=== PATIENT | male | born 1955 | race Caucasian/White ===

== ENCOUNTER 2024-01-14 20:36 | Emergency (ER) | payer MEDICARE, MEDICAID, SELFPAY ==
--- NOTE | ~2024-01-14 | XR_ITS ---
EXAMINATION: XR CHEST CLINICAL INFORMATION: Dyspnea. History of emphysema. COMPARISON: None available. TECHNIQUE: 2 views of the chest were obtained. FINDINGS: The heart is normal in size. There is calcific atherosclerotic disease of the aorta. The lungs are hyperinflated. There is flattening of the diaphragm and increased size of the retrosternal airspace, consistent with chronic obstructive pulmonary disease. There are bibasilar airspace opacities for which infection cannot be excluded. There is no pleural effusion or pneumothorax. No acute osseous abnormality. XR/XR chest 2V IMPRESSION: Bibasilar airspace opacities for which an infectious/inflammatory etiology cannot be excluded. Findings consistent with chronic obstructive pulmonary disease. Electronically signed by: Carlos Contreras DO 01/14/2024 09:56 PM EDT
--- NOTE | 2024-01-14 20:44 | ED.GENADULT ---
HPI - General Adult General Chief complaint: Dyspnea Stated complaint: difficulty breathing Time Seen by Provider: 01/15/24 00:05 Source: patient Limitations: no limitations History of Present Illness ED Provider: Tiara Calderon PA-C HPI narrative: 68-year-old male with a history of COPD on 2 L nasal cannula, emphysema, chronic kidney disease stage 3, hypertension, hyperlipidemia, diabetes and depression presents with 2-3 days of cough and wheezing. Patient states his chest feels tight, and he has been having worsening dyspnea with exertion. Patient has been using his home nebulizer without relief from symptoms. Denies fever, known sick contacts with viral symptoms, no nausea no vomiting or diarrhea. Related Data Previous Rx's ?Medication ?Instructions ?Recorded prednisone 20 mg tablet 40 mg (2 x 20 mg) PO DAILY #8 tabs 01/15/24 Allergies Allergy/AdvReac Type Severity Reaction Status Date / Time codeine Allergy Headache Verified 01/14/24 20:49 Review of Systems Review of Systems: Yes all other systems are reviewed and are negative Constitutional: Constitutional: Denies fatigue and Denies fever(s) Cardiovascular: Cardiovascular: Denies chest pain and Reports dyspnea on exertion Respiratory: Respiratory: Reports cough, Reports dyspnea on exertion and Reports wheezing Gastrointestinal: Gastrointestinal: Denies diarrhea, Denies nausea and Denies vomiting Endocrine: Endocrine: Denies fatigue Allergic/Immunologic: Allergic/Immunologic: Reports wheezing PMFSH Past Medical History Attestation statement: The following information was validated with the patient. Social History Social History Advance Directives: No Advance Directives Information Provided: No Physical Exam ED Vital Signs: Vital Signs - 24 hr 01/14/24 20:46 01/15/24 00:00 Temperature 97.9 F 98.8 F Pulse Rate 102 H 89 Respiratory Rate 18 17 Blood Pressure 109/65 127/63 Pulse Oximetry 98 96 Oxygen Delivery Method Room Air Room Air BMI result Body Mass Index 33.9 Const Other: Alert, well in appearance Orientation/consciousness: patient oriented x3 Resp Other: Somewhat tachypneic, however speaking in full sentences, breath sounds diminished, no active wheezing, active dry cough at times no wheezing Cardio Other: Normal peripheral perfusion Skin Other: Warm dry no rash Neuro General: patient oriented x3, no focal motor deficits and CN's II-XI intact bilaterally Psych Other: Calm cooperative Course Course Course Narrative: This is a rapid medical exam performed by Damian Mendez NP: Additional HPI, ROS, PE not included below will be deferred to primary provider. Patient is a 68-year-old male with history of emphysema, on home O2 @ 2lpm, presenting to the ED with complaint of worsening dyspnea for the past 3 days. Denies pain. Plan: viral serology, labs, CXR Reevaluation(s) Reevaluation #1: Patient much improved after up dress we will get an ambulation trial to make sure he does not desaturate Time: 01:40 Reevaluation #2: Patient ambulated maintained his baseline oxygen saturation we will discharge now Medications Administered Generic Name Dose Route Start Last Admin Trade Name Freq PRN Reason Stop Dose Admin Magnesium Sulfate 2 gm in 50 mls @ 25 mls/hr 01/15/24 00:15 01/15/24 00:52 Magnesium Sulfate/H2o IV 01/15/24 02:14 25 mls/hr ONCE ONE Administration Discontinued Medications Generic Name Dose Route Start Last Admin Trade Name Freq PRN Reason Stop Dose Admin Methylprednisolone Sodium Succinate 125 mg 01/15/24 00:15 01/15/24 00:52 Methylprednisolone Sod Succ 125 Mg/2 Ml Vial IVPUSH 01/15/24 00:16 125 mg ONCE ONE Administration Medical Decision Making Medical Decision Making MDM Narrative: 68-year-old male with a history of COPD on 2 L nasal cannula, emphysema, chronic kidney disease stage 3, hypertension, hyperlipidemia, diabetes and depression presents with 2-3 days of cough and wheezing. Patient states his chest feels tight, and he has been having worsening dyspnea with exertion. Patient has been using his home nebulizer without relief from symptoms. Denies fever, known sick contacts with viral symptoms, no nausea no vomiting or diarrhea. Problem: COPD, chronic kidney disease, hypertension, diabetes History: Per patient I have considered the following differential diagnoses: PE, chronic lung disease exacerbation exacerbation, viral syndrome, bronchitis, pneumonia Plan: Do not think this is PE, the patient does not newly hypoxic, there was no pleuritic chest pain, he is not persistently tachycardic, he has no objective signs symptoms for DVT on exam, I am deferring a dimer. I am treating the patient for a chronic lung disease exacerbation likely secondary to exposure to viral illness, despite our viral panel being negative. There are numerous respiratory viruses circulating in the community. We will be giving duo neb, 2 g of magnesium and Solu-Medrol. The additional screening labs and chest x-ray were obtained from triage. He has no leukocytosis, the cough is not productive, clinically does not have pneumonia nor bronchitis, I am not starting empiric antibiotics as it is not clinically warranted. Given the fact that chronic lung disease exacerbation is part of our sepsis protocol, I have no choice but to obtain blood cultures and a lactic acid. To note, this is not sepsis I have independently reviewed the following tests: Labs: No leukocytosis, not anemic, no electrolyte abnormality, creatinine is 3.13, the patient does not know what his baseline creatinine is, viral panel negative X-ray: Dyspnea. History of emphysema. COMPARISON: None available. TECHNIQUE: 2 views of the chest were obtained. FINDINGS: The heart is normal in size. There is calcific atherosclerotic disease of the aorta. The lungs are hyperinflated. There is flattening of the diaphragm and increased size of the retrosternal airspace, consistent with chronic obstructive pulmonary disease. There are bibasilar airspace opacities for which infection cannot be excluded. There is no pleural effusion or pneumothorax. No acute osseous abnormality. XR/XR chest 2V IMPRESSION: Bibasilar airspace opacities for which an infectious/inflammatory etiology cannot be excluded. Findings consistent with chronic obstructive pulmonary disease. Electronically signed by: Carlos Contreras DO 01/14/2024 09:56 PM EDT RP Lab Data 01/14/24 21:33 01/14/24 21:33 Labs: Lab Results 01/14/24 01/15/24 Range/Units 21:33 00:29 WBC 6.9 (4.8-10.8) X10*3/uL RBC 4.52 L (4.60-5.80) X10*6/uL Hgb 13.5 L (14.0-18.0) g/dl Hct 40.8 L (42.0-52.0) % MCV 90.3 (80.0-98.0) fL MCH 29.9 (27.0-33.0) pg MCHC 33.1 (31.0-36.0) g/dl RDW 14.6 (11.0-16.0) % Plt Count 162 (160-400) X10*3/uL MPV 9.6 (9.4-12.4) fL Immature Gran % (Auto) 1.3 H (0.0-0.4) % Neut % (Auto) 71.4 (45-73) % Lymph % (Auto) 12.9 L (20-40) % [place] % (Auto) 11.5 H (2-11) % Eos % (Auto) 2.2 (0-4) % Baso % (Auto) 0.7 (0-2) % Lymph # (Auto) 0.9 L (1.2-4.9) X10*3/uL [place] # (Auto) 0.8 (0.1-1.2) X10*3/uL Eos # (Auto) 0.2 (0.0-0.4) X10*3/uL Baso # (Auto) 0.1 (0.0-0.2) X10*3/uL Abs Immat Gran (auto) 0.09 H (0.00-0.03) X10*3/uL Absolute Neuts (auto) 4.9 (2.0-8.3) x10*3/uL Absolute Nucleated RBC 0.000 (0.0-0.012) X10*3/uL Nucleated RBC % (auto) 0.0 (0.0-0.2) /100WBC PT 9.8 L (10.9-12.4) SEC INR 0.8 L (0.9-1.1) Sodium 146 H (135-145) mmol/L Potassium 4.8 (3.3-5.1) mmol/L Chloride 109 H (96-108) mmol/L Carbon Dioxide 26 (22-29) mmol/L Anion Gap 16 (12-20) BUN 49 H (9-16) mg/dL Creatinine 3.13 H (0.5-1.4) mg/dL Estim Creat Clear Calc 28.4 Estimated GFR 20 Random Glucose 98 (60-115) mg/dL Lactic Acid 0.9 (0.5-2.0) mmol/L Calcium 10.2 (8.4-10.2) mg/dL Total Bilirubin 0.1 (0.0-1.0) mg/dL AST 14 (5-37) U/L ALT 17 (0-40) U/L Alkaline Phosphatase 102 (39-117) U/L Troponin I High Sens 4.8 (<3.5-35.0) ng/L B-Natriuretic Peptide 14 (<100) pg/mL Total Protein 7.1 (6.5-8.0) g/dL Albumin 4.1 (3.5-5.0) g/dL Influenza Type A (PCR) NEGATIVE (Negative) Influenza Type B (PCR) NEGATIVE (Negative) RSV RNA Qual (PCR) NEGATIVE (Negative) SARS-CoV-2 RNA (RT-PCR) NEGATIVE (Negative) Discharge Plan Discharge Clinical Impression: Acute viral syndrome, COPD exacerbation Patient Disposition: Home, Self-Care Instructions: COPD (Chronic Obstructive Pulmonary Disease) (ED), Viral Syndrome (ED) Additional Instructions: You are being treated for an acute exacerbation of your COPD. See home care instructions. Use your nebulized treatments as directed, take the steroid taper as directed, you do not need to take any additional steroid until tomorrow morning. Tonight, all of your screening labs were normal, you were screened for RSV influenza and COVID, the panel was negative. You do not have a pneumonia on your chest x-ray. You need to follow up with your primary care provider for a recheck Prescriptions: New prednisone 20 mg tablet 40 mg PO DAILY Qty: 8 0RF Print Language: Bulgarian
[2024-01-14 20:46] VITALS: BP 109/65; PULSE 102; RESP 18; TEMP 36.6; O2SAT 98; BMI 33.9
--- NOTE | 2024-01-14 20:47 | ECG_ITS ---
Test Reason : dyspnea Blood Pressure : / mmHG Vent. Rate : 105 BPM Atrial Rate : 105 BPM P-R Int : 196 ms QRS Dur : 074 ms QT Int : 340 ms P-R-T Axes : 070 031 044 degrees QTc Int : 449 ms Sinus tachycardia Nonspecific ST abnormality Abnormal ECG When compared with ECG of 05-APR-2004 22:13, Criteria for Septal infarct are no longer Present ST now depressed in Lateral leads Referred By: Yolis Mendez Electronically Signed By:TERESA PARIS MD
[2024-01-14 21:40] LABS: MANUAL DIFF FLAG NO
[2024-01-14 21:41] LABS: Basophils Absolute Auto 0.1 X10*3/uL (0.0-0.2); Basophils Percent Auto 0.7 % (0-2); Eosinophils Absolute Auto 0.2 X10*3/uL (0.0-0.4); Eosinophils Percent Auto 2.2 % (0-4); Hematocrit 40.8 % (42.0-52.0); Hemoglobin 13.5 g/dl (14.0-18.0); Imm Gran Abs Auto 0.09 X10*3/uL (0.00-0.03); Imm Gran Pct Auto 1.3 % (0.0-0.4); Lymphocytes Absolute Auto 0.9 X10*3/uL (1.2-4.9); Lymphocytes Percent Auto 12.9 % (20-40); Mean Corpuscular HGB Conc 33.1 g/dl (31.0-36.0); Mean Corpuscular Hemoglobin 29.9 pg (27.0-33.0); Mean Corpuscular Volume 90.3 fL (80.0-98.0); Mean Platelet Volume 9.6 fL (9.4-12.4); Monocytes Absolute Auto 0.8 X10*3/uL (0.1-1.2); Monocytes Percent Auto 11.5 % (2-11); Neutrophils Absolute Auto 4.9 x10*3/uL (2.0-8.3); Neutrophils Percent Auto 71.4 % (45-73); Platelet Count 162 X10*3/uL (160-400); Red Blood Count 4.52 X10*6/uL (4.60-5.80); Red Cell Distribution Width 14.6 % (11.0-16.0); White Blood Count 6.9 X10*3/uL (4.8-10.8)
[2024-01-14 21:53] LABS: INTERNATIONAL NORM RATIO 0.8 (0.9-1.1); Prothrombin Time 9.8 SEC (10.9-12.4)
[2024-01-14 21:58] LABS: Alanine Aminotransferase 17 U/L (0-40); Albumin Level 4.1 g/dL (3.5-5.0); Alkaline Phosphatase 102 U/L (39-117); Anion Gap 16 (12-20); Aspartate Amino Transferase 14 U/L (5-37); Bilirubin Total 0.1 mg/dL (0.0-1.0); Blood Urea Nitrogen 49 mg/dL (9-16); Calcium 10.2 mg/dL (8.4-10.2); Carbon Dioxide 26 mmol/L (22-29); Chloride 109 mmol/L (96-108); Creatinine Clr Calc Pharmacy 28.4; Estimated Glomerular Filt Rate 20; Glucose Random 98 mg/dL (60-115); Potassium 4.8 mmol/L (3.3-5.1); Sodium 146 mmol/L (135-145); Total Protein 7.1 g/dL (6.5-8.0)
[2024-01-14 22:04] LABS: B Type Natriuretic Peptide 14 pg/mL (<100)
[2024-01-14 22:05] LABS: Troponin-I High Sensitivity 4.8 ng/L (<3.5-35.0)
[2024-01-14 22:17] LABS: Influenza A PCR NEGATIVE (Negative); Influenza B PCR NEGATIVE (Negative); Resp Syncy Virus RNA Qual PCR NEGATIVE (Negative); SARS COV2 PCR INHOUSE NEGATIVE (Negative)
[2024-01-15] VITALS: BP 127/63; PULSE 89; RESP 17; TEMP 37.1; O2SAT 96
[2024-01-15 00:48] LABS: Lactic Acid 0.9 mmol/L (0.5-2.0)
[2024-01-15] MEDS: Magnesium Sulfate/H2O 2 GM/50 ML PIGGYBACK IV (00:52)
[2024-01-15] MEDS: methylPREDNISolone Sod Succ 125 MG/2 ML VIAL IVPUSH (00:52)
[2024-01-15 01:57] VITALS: BP 125/43; PULSE 84; RESP 20; TEMP 36.8; O2SAT 97
== END 2024-01-15 01:59 | disposition home or self-care (01) ==
PROVIDERS: Physician Assistant Medical; Registered Nurse Emergency; Emergency Provider Emergency Medicine
DX: J44.1 Chronic obstructive pulmonary disease with (acute) exacerbation (principal); B34.9 Viral infection, unspecified; R06.00 Dyspnea, unspecified; R00.0 Tachycardia, unspecified; Z99.81 Dependence on supplemental oxygen; Z03.818 Encounter for observation for suspected exposure to other biological agents ruled out; Z79.899 Other long term (current) drug therapy; Z51.81 Encounter for therapeutic drug level monitoring
CPT/HCPCS: 0241U; 36415; 71046; 80053; 83605; 83880; 84484; 85025; 85610; 87040; 93005; 96374; 96375; 99284; 99285; J2919; J3475

== ENCOUNTER → 2024-01-14 20:47 | Outpatient (BNV) | payer MEDICARE, MEDICAID, SELFPAY | PROVIDERS: Emergency Provider Emergency Medicine; Visit Provider Internal Medicine Cardiovascular Disease | DX: R94.31 Abnormal electrocardiogram [ECG] [EKG] (principal) | CPT/HCPCS: 93010 ==

== ENCOUNTER 2024-01-23 14:02 | Observation (INO) | payer MEDICARE, MEDICAID, SELFPAY ==
--- NOTE | ~2024-01-23 | XR_ITS ---
EXAMINATION: XR CHEST CLINICAL INFORMATION: Shortness of breath COMPARISON: Chest radiograph January 14, 2024 TECHNIQUE: 2 views of the chest were obtained. FINDINGS: Hyperinflated lung mendez consistent with emphysema. Persistent bibasilar opacities. No pleural effusion. The heart and mediastinal borders are unchanged. No pneumothorax. No acute osseous abnormality. XR/XR chest 2V IMPRESSION: Persistent bibasilar opacities concerning for infection. Electronically signed by: Neri Ring MD 01/23/2024 03:15 PM EDT
[2024-01-23 14:05] VITALS: BP 148/61; PULSE 109; RESP 26; TEMP 37; O2SAT 96; BMI 33.9
--- NOTE | 2024-01-23 14:05 | ED_ITS ---
HPI - SOB/Dyspnea General Chief Complaint: Dyspnea Stated Complaint: diff breathing Time Seen by Provider: 01/23/24 15:21 Source: patient, family, RN notes reviewed and old records reviewed Mode of arrival: ambulatory History of Present Illness ED Provider: Telma Greenberg PA-C HPI Narrative: 68-year-old male with a past medical history of COPD on 2 L NC with exertion, emphysema, CKD stage 3, HTN, HLD, DM, depression, presenting to the ED complaining of increasing SOB, chest tightness, and dry cough times 3-4 days. Patient was seen and treated in our ED on 01/13 for similar symptoms, wiping finish course of prednisone without relief. Denies fever, chills, pedal edema, calf tenderness, abdominal pain, nausea/vomiting. Related Data Home Medications ?Medication ?Instructions ?Recorded ?Confirmed albuterol sulfate 90 mcg/actuation 2 puff inhalation Q6H PRN 01/23/24 01/23/24 aerosol inhaler (Ventolin HFA) Shortness Of Breath Or Wheezing amlodipine 5 mg tablet 5 mg PO DAILY 01/23/24 01/23/24 aripiprazole 5 mg tablet 5 mg PO DAILY 01/23/24 01/23/24 aspirin 81 mg tablet,delayed 81 mg PO DAILY 01/23/24 01/23/24 release budesonide-formoterol HFA 160 2 puff inhalation BID 01/23/24 01/23/24 mcg-4.5 mcg/actuation aerosol inhaler (Symbicort) empagliflozin 10 mg tablet 10 mg PO DAILY 01/23/24 01/23/24 (Jardiance) fenofibrate nanocrystallized 145 145 mg PO DAILY 01/23/24 01/23/24 mg tablet lorazepam 0.5 mg tablet 0.5 mg PO Q8H PRN Anxiety 01/23/24 01/23/24 losartan 50 mg tablet 50 mg PO DAILY 01/23/24 01/23/24 omeprazole 20 mg capsule,delayed 20 mg PO DAILY@0630 01/23/24 01/23/24 release polyethylene glycol 3350 17 17 g PO DAILY 01/23/24 01/23/24 gram/dose oral powder rosuvastatin 40 mg tablet 40 mg PO DAILY 01/23/24 01/23/24 tiotropium bromide 18 mcg capsule 1 cap inhalation DAILY 01/23/24 01/23/24 with inhalation device (Spiriva with HandiHaler) venlafaxine 75 mg capsule,extended 225 mg PO DAILY 01/23/24 01/23/24 release 24 hr Allergies Allergy/AdvReac Type Severity Reaction Status Date / Time codeine Allergy Headache Verified 01/23/24 14:11 Review of Systems 2 Review of Systems: Yes all other systems are reviewed and are negative Constitutional: Constitutional: Reports as per [facility] Past Medical History Attestation statement: The following information was validated with the patient. Source: old records reviewed Medical History Hypertension Peripheral vascular disease Diabetes Common variable immunodeficiency COPD (chronic obstructive pulmonary disease) Social History Social History (Updated 01/23/24 @ 17:05 by CHEVY Almazan) Household Members: Spouse Housing: Apartment Do you presently have visiting nurse or other home services: No Alcohol intake: current Alcohol intake frequency: holidays/special occasions only Patient Tobacco Use Status: Former Tobacco user Smoked in Last 30 Days: No Use of substances other than those prescribed or required for medical reasons: No Advance Directives: No Advance Directives Information Provided: No Do you have a plan to hurt others: No Plan Recently lost weight without trying: No Eating poorly because of decreased appetite: No Nutrition Risks: No Nutritional Risk Poor oral hygiene: No Physical Exam 2 Vital Signs: Vital Signs: Last Vital Signs Temp 97.6 F 01/23/24 19:42 Pulse 106 H 01/23/24 19:57 Resp 18 01/23/24 19:57 BP 145/56 H 01/23/24 19:42 Pulse Ox 95 01/23/24 19:42 O2 Del Method Room Air 01/23/24 15:44 Oxygen Flow Rate 2 01/23/24 14:05 BMI result Body Mass Index 33.9 Const: General: cooperative, healthy appearing and no acute distress O rientation/consciousness: patient oriented x3 Limitations: no limitations HEENT: Head: Yes normal to inspection and Yes atraumatic Ears: hearing grossly normal bilaterally General nose exam: Normal external nose present Face and sinus: Yes normal facial exam Eyes: General: appearance normal, both eyes and all related structures EOM: EOMs intact bilaterally Neck: Neck: Yes normal visual inspection and Yes no meningeal signs Resp: Effort & Inspection: normal respiratory effort and no respiratory distress Auscultation: diminished lung sounds diffuse Cardio: Rate: regular rate Heart sounds: S1 normal heart sound present and S2 normal heart sound present GI: Inspection: Yes normal to inspection Palpation (GI): Soft to palpation, nontender, no guarding and not rigid Skin: Rashes: no rashes Wounds: no wounds Neuro: General: patient oriented x3, tone normal and no meningeal signs C ranial nerves: Yes CN's II-XII intact bilaterally Gait exam (Neuro): Normal gait present Extrem: General: Yes normal to inspection, Yes no pedal edema and Yes no calf tenderness Course Course Course Narrative: This is a Rapid Medical Exam performed in triage by Telma Greenberg PA-C. Full HPI, ROS and PE to be performed by primary ED provider. 68 yo M w.PMHx COPD on 2 L nasal cannula w/exertion only, emphysema, chronic kidney disease stage 3, hypertension, hyperlipidemia, diabetes and depression presenting to the ED c/o SOB x 4-5 days with chest tightness & +dry cough. Was seen on 01/13 here for similar sx however sx returned once finished Prednisone. Has been compliant with home medications. PE: diminished lung sounds throughout, No pedal edema Plan: EKG, labs, CXR, viral studies -1557--no leukocytosis. H&H at patient's baseline. Chronically elevated BUN/creatinine. Initial troponin 5.2 will obtain repeat -viral studies negative XR chest 2V IMPRESSION: Persistent bibasilar opacities concerning for infection. > patient given Rocephin/azithromycin and IV Solu-Medrol. Plan is for admission Medications Administered Generic Name Dose Route Start Last Admin Trade Name Freq PRN Reason Stop Dose Admin Albuterol/Ipratropium 3 ml 01/23/24 20:00 01/23/24 19:53 Albuterol/Iprat 2.5/0.5mg 3 Ml Ampul.Neb INHALE 3 ml RQ6H WHILE AWAKE PHYLLIS Administration Heparin Sodium (Porcine) 5,000 unit 01/23/24 17:00 01/23/24 17:45 Heparin Sodium,Porcine 5,000 Unit/Ml Vial SUBCUT 5,000 unit Q12H PHYLLIS Administration Discontinued Medications Generic Name Dose Route Start Last Admin Trade Name Freq PRN Reason Stop Dose Admin Ceftriaxone Sodium 1 gm 01/23/24 15:21 01/23/24 15:37 Ceftriaxone Sodium 1 Gm Vial IVPUSH 01/23/24 15:22 1 gm ONCE ONE Administration Albuterol Sulfate 5 mg/ 0 mg 01/23/24 14:40 01/23/24 14:43 Albuterol/Ipratropium 3 ml INHALE 01/23/24 14:41 1 each ONCE ONE Administration Azithromycin 500 mg/ Sodium 250 mls @ 125 mls/hr 01/23/24 15:21 01/23/24 17:47 Chloride IV 01/23/24 17:20 Infused ONCE ONE Infusion Methylprednisolone Sodium Succinate 60 mg 01/23/24 15:27 01/23/24 15:35 Methylprednisolone Sod Succ 125 Mg/2 Ml Vial IVPUSH 01/23/24 15:28 60 mg ONCE ONE Administration Medical Decision Making Medical Decision Making [facility] Narrative: 68-year-old male with a past medical history of COPD on 2 L NC with exertion, emphysema, CKD stage 3, HTN, HLD, DM, depression, presenting to the ED complaining of increasing SOB, chest tightness, and dry cough x 3-4 days. On exam initially tachycardic, tachypneic, satting 96% on baseline O2, diminished lung sounds throughout, no pedal edema. Concern for COPD exacerbation vs pneumonia. Rule out CHF and ACS. Lower suspicion for DVT/PE. low suspicion for severe sepsis at this time Plan: EKG, labs, CXR, viral studies, ED bronch protocol, re-evaluate Please refer to course for remaining clinical decision making, interpretation of labs/imaging results, and discussions with consultants and/or family members. Differential Diagnosis Differential Diagnoses: The differential diagnosis associated with the presentation includes As above Admission/Observation Consideration of admission/observation: Escalation of care including admission/observation considered Lab Data [facility] Lab Attestation statement: I reviewed the patient's lab results. 01/23/24 14:28 01/23/24 14:28 Labs: Lab Results 01/23/24 Range/Units 14:28 WBC 9.2 (4.8-10.8) X10*3/uL RBC 4.62 (4.60-5.80) X10*6/uL Hgb 13.6 L (14.0-18.0) g/dl Hct 41.6 L (42.0-52.0) % MCV 90.0 (80.0-98.0) fL MCH 29.4 (27.0-33.0) pg MCHC 32.7 (31.0-36.0) g/dl RDW 15.0 (11.0-16.0) % Plt Count 179 (160-400) X10*3/uL MPV 9.8 (9.4-12.4) fL Immature Gran % (Auto) 1.1 H (0.0-0.4) % Neut % (Auto) 82.7 H (45-73) % Lymph % (Auto) 7.1 L (20-40) % [place] % (Auto) 7.6 (2-11) % Eos % (Auto) 1.2 (0-4) % Baso % (Auto) 0.3 (0-2) % Lymph # (Auto) 0.7 L (1.2-4.9) X10*3/uL [place] # (Auto) 0.7 (0.1-1.2) X10*3/uL Eos # (Auto) 0.1 (0.0-0.4) X10*3/uL Baso # (Auto) 0.0 (0.0-0.2) X10*3/uL Abs Immat Gran (auto) 0.10 H (0.00-0.03) X10*3/uL Absolute Neuts (auto) 7.6 (2.0-8.3) x10*3/uL Absolute Nucleated RBC 0.000 (0.0-0.012) X10*3/uL Nucleated RBC % (auto) 0.0 (0.0-0.2) /100WBC PT 9.9 L (10.9-12.4) SEC INR 0.9 (0.9-1.1) Sodium 142 (135-145) mmol/L Potassium 4.8 (3.3-5.1) mmol/L Chloride 108 (96-108) mmol/L Carbon Dioxide 25 (22-29) mmol/L Anion Gap 14 (12-20) BUN 54 H (9-16) mg/dL Creatinine 2.52 H (0.5-1.4) mg/dL Estim Creat Clear Calc 35.3 Estimated GFR 26 Random Glucose 117 H (60-115) mg/dL Lactic Acid 0.9 (0.5-2.0) mmol/L Calcium 9.6 (8.4-10.2) mg/dL Total Bilirubin 0.2 (0.0-1.0) mg/dL Direct Bilirubin < 0.2 (0.0-0.5) mg/dL AST 13 (5-37) U/L ALT 15 (0-40) U/L Alkaline Phosphatase 99 (39-117) U/L Troponin I High Sens 5.2 (<3.5-35.0) ng/L B-Natriuretic Peptide 12 (<100) pg/mL Total Protein 6.8 (6.5-8.0) g/dL Albumin 4.0 (3.5-5.0) g/dL Procalcitonin 0.24 ng/mL Influenza Type A (PCR) NEGATIVE (Negative) Influenza Type B (PCR) NEGATIVE (Negative) RSV RNA Qual (PCR) NEGATIVE (Negative) SARS-CoV-2 RNA (RT-PCR) NEGATIVE (Negative) Independent Interpretation I performed an independent interpretation of an: EKG (My interpretation EKG sinus tachycardia rate of 105. QTC 412. No significant change when compared to prior. No STEMI) Radiology Impression Discussion of test interpretation with radiology: I have reviewed the radiologist's reading. Independent Historian Clinical information obtained from an independent historian. History obtained from or confirmed by: Spouse External Record Review External record reviewed: Inpatient record, Office record, Outpatient record, Prior outpatient labs, Prior outpatient radiology, Primary care record and Outside ED record Tests considered The following testing was considered but not selected: As above Prescription Management I considered prescription management with: Other Chronic Conditions Patient?s care impacted by: Other (COPD) Critical Care Time Critical Care Time Critical Care Time: Yes Total Critical Care Time: 40 Attestation: I have personally provided critical care time exclusive of time spent on separately billable procedures. Time includes review of lab data, radiology results, discussion with consultants, and monitoring for potential decompensation. Intervention performed as documented. Discharge Plan Discharge Clinical Impression: Pneumonia, COPD exacerbation Patient Disposition: Admitted As Inpatient Interventions: Admission Worksheet (ED) Last Done: 01/23/24 17:35 Discharge Date/Time: 01/23/24 18:35
--- NOTE | 2024-01-23 14:07 | ECG_ITS ---
Test Reason : CP Blood Pressure : / mmHG Vent. Rate : 105 BPM Atrial Rate : 105 BPM P-R Int : 190 ms QRS Dur : 078 ms QT Int : 312 ms P-R-T Axes : 069 046 049 degrees QTc Int : 412 ms Sinus tachycardia Possible Anterior infarct , age undetermined ; could be related to body habitus and lead placement Abnormal ECG When compared with ECG of 14-JAN-2024 21:19, No significant change was found Referred By: Telma Greenberg Electronically Signed By:MIKI WAGGONER
[2024-01-23 14:36] LABS: MANUAL DIFF FLAG NO
[2024-01-23 14:37] LABS: Basophils Percent Auto 0.3 % (0-2); Eosinophils Absolute Auto 0.1 X10*3/uL (0.0-0.4); Eosinophils Percent Auto 1.2 % (0-4); Hematocrit 41.6 % (42.0-52.0); Hemoglobin 13.6 g/dl (14.0-18.0); Imm Gran Pct Auto 1.1 % (0.0-0.4); Lymphocytes Absolute Auto 0.7 X10*3/uL (1.2-4.9); Lymphocytes Percent Auto 7.1 % (20-40); Mean Corpuscular HGB Conc 32.7 g/dl (31.0-36.0); Mean Corpuscular Hemoglobin 29.4 pg (27.0-33.0); Mean Platelet Volume 9.8 fL (9.4-12.4); Monocytes Absolute Auto 0.7 X10*3/uL (0.1-1.2); Monocytes Percent Auto 7.6 % (2-11); Neutrophils Absolute Auto 7.6 x10*3/uL (2.0-8.3); Neutrophils Percent Auto 82.7 % (45-73); Platelet Count 179 X10*3/uL (160-400); Red Blood Count 4.62 X10*6/uL (4.60-5.80); White Blood Count 9.2 X10*3/uL (4.8-10.8)
[2024-01-23] MEDS: Albuterol Sulfate 5 MG, Albuterol/Iprat 2.5/0.5MG 3 ML 3 ML INHALE (14:43)
[2024-01-23 14:44] LABS: INTERNATIONAL NORM RATIO 0.9 (0.9-1.1); Prothrombin Time 9.9 SEC (10.9-12.4)
[2024-01-23 14:46] VITALS: PULSE 101; RESP 22; O2SAT 96
[2024-01-23 14:49] LABS: Lactic Acid 0.9 mmol/L (0.5-2.0)
[2024-01-23 14:52] LABS: Alanine Aminotransferase 15 U/L (0-40); Alkaline Phosphatase 99 U/L (39-117); Anion Gap 14 (12-20); Aspartate Amino Transferase 13 U/L (5-37); Bilirubin Direct < 0.2 mg/dL (0.0-0.5); Bilirubin Total 0.2 mg/dL (0.0-1.0); Blood Urea Nitrogen 54 mg/dL (9-16); Calcium 9.6 mg/dL (8.4-10.2); Carbon Dioxide 25 mmol/L (22-29); Chloride 108 mmol/L (96-108); Creatinine Clr Calc Pharmacy 35.3; Estimated Glomerular Filt Rate 26; Glucose Random 117 mg/dL (60-115); Potassium 4.8 mmol/L (3.3-5.1); Sodium 142 mmol/L (135-145); Total Protein 6.8 g/dL (6.5-8.0)
[2024-01-23 14:58] LABS: B Type Natriuretic Peptide 12 pg/mL (<100)
[2024-01-23 15:00] LABS: Troponin-I High Sensitivity 5.2 ng/L (<3.5-35.0)
[2024-01-23 15:15] LABS: Influenza A PCR NEGATIVE (Negative); Influenza B PCR NEGATIVE (Negative); Resp Syncy Virus RNA Qual PCR NEGATIVE (Negative); SARS COV2 PCR INHOUSE NEGATIVE (Negative)
[2024-01-23] MEDS: methylPREDNISolone Sod Succ 125 MG/2 ML VIAL 60 MG IVPUSH (15:35)
[2024-01-23] MEDS: cefTRIAXone sodium 1 GM VIAL IVPUSH (15:37)
[2024-01-23 15:44] VITALS: BP 117/62; PULSE 108; RESP 16
[2024-01-23] MEDS: Azithromycin 500 MG in 0.9 % Sodium Chloride 250 ML 125 MG IV (15:47)
--- NOTE | 2024-01-23 17:01 | PM.IMHP ---
History of Present Illness Date of Service: 01/23/24 Attending physician on admission: Michael Kothari Chief Complaint: shortness of breath This is a 68-year-old male with a history of COPD on 2 L of supplemental oxygen with ambulation who presents to the emergency department with shortness of breath. He was seen in the emergency department on January 13 with shortness of breath and dry cough. At that time his workup was unremarkable and he was discharged home with a course of steroids. Shortly after he completed steroids he began having recurrent symptoms of shortness of breath and dry cough. He reports associated generalized malaise and denies associated fever or chills. He denies any recent sick contacts. He has not been hospitalized in the past several months. And has never been hospitalized for COPD exacerbation. In the emergency department he was afebrile with no leukocytosis. He was initially tachycardic and tachypneic on arrival. Chest x-ray showed concern over possible bibasilar infection. He received IV steroids, antibiotics, breathing treatments and breathing treatments able to due to persistent dyspnea and recurrent symptoms the decision was made to admit him to the hospital for further management. Review of Systems Review of Systems: Yes all other systems are reviewed and are negative Constitutional: Constitutional: Denies chills and Denies fever(s) ENT: Denies dizziness Cardiovascular: Cardiovascular: Denies chest pain and Reports dyspnea on exertion Respiratory: Respiratory: Reports cough and Reports dyspnea on exertion Neurologic: Denies dizziness [facility] Medical History (Updated 01/23/24 @ 17:05 by CHEVY Almazan) Hypertension Peripheral vascular disease Diabetes Common variable immunodeficiency COPD (chronic obstructive pulmonary disease) Functional capacity: independent ambulation Social History (Updated 01/23/24 @ 17:05 by CHEVY Almazan) Alcohol intake: current Alcohol intake frequency: holidays/special occasions only Patient Tobacco Use Status: Former Tobacco user Meds Allergies Allergy/AdvReac Type Severity Reaction Status Date / Time codeine Allergy Headache Verified 01/23/24 14:11 Active Medications: Current Medications Acetaminophen (Acetaminophen 325 Mg Tablet) 650 mg PO Q6H PRN PRN Reason: Pain, Mild (Pain Scale 1-3), fever or headache Heparin Sodium (Porcine) (Heparin Sodium,Porcine 5,000 Unit/Ml Vial) 5,000 unit SUBCUT Q12H PHYLLIS Azithromycin 500 mg/ Sodium (Chloride) 250 mls @ 125 mls/hr IV ONCE ONE Stop: 01/23/24 17:20 Last Admin: 01/23/24 15:47 Dose: 125 mls/hr Magnesium Hydroxide (Milk Of Magnesia 30 Ml Oral.Susp) 30 ml PO DAILY PRN PRN Reason: Constipation Melatonin (Melatonin 3 Mg Tablet) 6 mg PO BEDTIME PRN PRN Reason: Insomnia Methylprednisolone Sodium Succinate (Methylprednisolone Sod Succ 40 Mg/Ml Vial) 40 mg IVPUSH Q12H PHYLLIS Sodium Chloride (0.9 % Sodium Chloride Flush 3 Ml Syringe) 3 ml IVFLUSH QSHIFT PHYLLIS Home Medications ?Medication ?Instructions ?Recorded ?Confirmed ?Last Taken ?Type albuterol sulfate 90 mcg/actuation 2 puff inhalation Q6H PRN 01/23/24 Unknown History aerosol inhaler (Ventolin HFA) Shortness Of Breath Or Wheezing amlodipine 5 mg tablet 5 mg PO DAILY 01/23/24 Unknown History aripiprazole 5 mg tablet 5 mg PO DAILY 01/23/24 Unknown History budesonide-formoterol HFA 160 2 puff inhalation BID 01/23/24 Unknown History mcg-4.5 mcg/actuation aerosol inhaler (Symbicort) empagliflozin 10 mg tablet 10 mg PO DAILY 01/23/24 Unknown History (Jardiance) fenofibrate nanocrystallized 145 145 mg PO DAILY 01/23/24 Unknown History mg tablet lorazepam 0.5 mg tablet 0.5 mg PO Q8H PRN Anxiety 01/23/24 Unknown History omeprazole 20 mg capsule,delayed 20 mg PO DAILY 01/23/24 Unknown History release polyethylene glycol 3350 17 17 g PO DAILY 01/23/24 Unknown History gram/dose oral powder rosuvastatin 40 mg tablet 40 mg PO DAILY 01/23/24 Unknown History tiotropium bromide 18 mcg capsule 1 cap inhalation DAILY 01/23/24 Unknown History with inhalation device (Spiriva with HandiHaler) venlafaxine 75 mg capsule,extended 225 mg PO DAILY 01/23/24 Unknown History release 24 hr Physical Exam Vital Signs and Narrative: Vital Signs: Last Vital Signs Temp 98.6 F 01/23/24 14:05 Pulse 108 H 01/23/24 15:44 Resp 16 01/23/24 15:44 BP 117/62 01/23/24 15:44 Pulse Ox 96 01/23/24 14:05 O2 Del Method Room Air 01/23/24 15:44 Oxygen Flow Rate 2 01/23/24 14:05 BMI result Body Mass Index 33.9 Const: General: cooperative, comfortable, alert and awake Nutritional Appearance: overweight Orientation/consciousness: patient oriented x3 Resp: Other: diminished breath sounds; scattered wheeze Effort & Inspection: normal respiratory effort, able to speak in complete sentences and no use of accessory muscles Cardio: Rate: regular rate GI: Inspection: No distended Palpation (GI): Soft to palpation and nontender Neuro: General: patient oriented x3, moves all extremities and CN's II-XI intact bilaterally Results Labs 01/23/24 14:28 01/23/24 14:28 Labs: Laboratory Results - last 24 hr 01/23/24 14:28 MCV 90.0 MCH 29.4 MCHC 32.7 RDW 15.0 Plt Count 179 MPV 9.8 Immature Gran % (Auto) 1.1 H Neut % (Auto) 82.7 H Lymph % (Auto) 7.1 L [place] % (Auto) 7.6 Eos % (Auto) 1.2 Baso % (Auto) 0.3 Lymph # (Auto) 0.7 L [place] # (Auto) 0.7 Eos # (Auto) 0.1 Baso # (Auto) 0.0 Abs Immat Gran (auto) 0.10 H Absolute Neuts (auto) 7.6 Absolute Nucleated RBC 0.000 Nucleated RBC % (auto) 0.0 PT 9.9 L INR 0.9 Anion Gap 14 Estim Creat Clear Calc 35.3 Estimated GFR 26 Random Glucose 117 H Lactic Acid 0.9 Calcium 9.6 Total Bilirubin 0.2 Direct Bilirubin < 0.2 AST 13 ALT 15 Alkaline Phosphatase 99 Troponin I High Sens 5.2 B-Natriuretic Peptide 12 Total Protein 6.8 Albumin 4.0 Influenza Type A (PCR) NEGATIVE Influenza Type B (PCR) NEGATIVE RSV RNA Qual (PCR) NEGATIVE SARS-CoV-2 RNA (RT-PCR) NEGATIVE Imaging Radiologist's Impressions: Impressions Chest X-Ray 01/23/24 14:07 IMPRESSION: Persistent bibasilar opacities concerning for infection. Electronically signed by: Neri Ring MD 01/23/2024 03:15 PM EDT Assessment and Plan (1) COPD exacerbation: Status: Acute Plan This is a 68-year-old male with history of CKD stage IV, COPD/chronic respiratory failure on 2 L of supplemental oxygen with ambulation, hypertension, common variable immunodeficiency, PVD with LLE stent who presents to the emergency department with persistent shortness of breath Acute exacerbation of COPD and possible pneumonia No white count, no fever, dry cough-likely viral. No evidence of sepsis COVID, flu, RSV negative-will check full RPP Check procalcitonin will treat with Scheduled and p.r.n. breathing treatments, systemic steroids Symptomatic support for cough Blood cultures pending Diabetes SSI, POCs, ADA diet CKD stage 4 at baseline per [facility] records HTN resume home meds when med rec complete HLD/PVD resume home meds when med rec complete ELDER BiPAP q.h.s. Morbid obesity BMI 33.9 common variable immunodeficiency gets Gammagard infusions q28 days, last 01/04 DVT ppx - heparin code status - full code HCP Flavia Guajardo Stroke Does the patient have a stroke diagnosis?: No VTE Prior VTE?: No VTE Risk Level:: Medical - moderate - high VTE Device Contraindication: N/A - Device Ordered VTE Drug Contraindication: N/A - Med Ordered
[2024-01-23 17:02] LABS: Procalcitonin 0.24 ng/mL
[2024-01-23] MEDS: Heparin Sodium,Porcine 5,000 UNIT/ML VIAL 5000 UNIT SUBCUT (17:45)
--- NOTE | 2024-01-23 18:15 | PHA.MEDREC ---
Addendum entered by Jennifer Valderrama RPh 01/23/24 18:18: MED REC REVIEWED BY PATTY Original Note: Pharmacy Consult ? Medication Reconciliation Pharmacy has completed the medication reconciliation. Patient states they take losartan 50 mg daily instead of BID.
[2024-01-23 18:17] VITALS: BMI 33.6
[2024-01-23 19:42] VITALS: BP 145/56; PULSE 106; RESP 18; TEMP 36.4; O2SAT 95
[2024-01-23] MEDS: Albuterol/Iprat 2.5/0.5MG 3 ML AMPUL.NEB INHALE (19:53)
[2024-01-23 19:57] VITALS: PULSE 106; RESP 18; O2SAT 95
[2024-01-23 20:52] LABS: Glucose, Whole Blood 239 mg/dL (60-115)
[2024-01-23] MEDS: Insulin Lispro 100 UNIT/ML 3 ML VIAL SUBCUT (21:12)
[2024-01-23] MEDS: 0.9 % Sodium Chloride Flush 3 ML SYRINGE IVFLUSH (21:12)
[2024-01-23 23:36] VITALS: BP 119/57; PULSE 95; RESP 18; TEMP 36.6; O2SAT 94
[2024-01-24 03:34] VITALS: BP 148/65; PULSE 96; RESP 18; TEMP 36; O2SAT 95
[2024-01-24] MEDS: Omeprazole 20 MG CAPSULE.DR PO (05:42)
[2024-01-24] MEDS: methylPREDNISolone Sod Succ 40 MG/ML VIAL IVPUSH (05:44)
[2024-01-24] MEDS: Doxycycline Hyclate 100 MG in 0.9 % Sodium Chloride 250 ML 166.67 MG IV (05:46)
[2024-01-24 07:06] LABS: Glucose, Whole Blood 134 mg/dL (60-115)
[2024-01-24 07:39] VITALS: BP 147/67; PULSE 89; RESP 20; TEMP 36.4; O2SAT 93
[2024-01-24] MEDS: Fluticasone/Vilanterol 200/25 BLST.W.DEV 1 PUFF INHALE (07:45)
[2024-01-24 07:47] VITALS: PULSE 64; RESP 14; O2SAT 96
[2024-01-24] MEDS: Venlafaxine HCl ER 75 MG CAP.ER.24H 225 MG PO (08:28)
[2024-01-24] MEDS: amLODIPine Besylate 5 MG TABLET PO (08:28)
[2024-01-24] MEDS: ARIPiprazole 5 MG TABLET PO (08:29)
[2024-01-24] MEDS: Aspirin Enteric Coated 81 MG TABLET.DR PO (08:29)
[2024-01-24] MEDS: Fenofibrate 160 MG TABLET PO (08:29)
[2024-01-24] MEDS: Losartan Potassium 50 MG TABLET PO (08:29)
[2024-01-24] MEDS: 0.9 % Sodium Chloride Flush 3 ML SYRINGE IVFLUSH (08:29)
[2024-01-24] MEDS: Atorvastatin Calcium 80 MG TABLET PO (08:29)
--- NOTE | 2024-01-24 09:26 | MHC.CM.PN ---
Jovita 01/24/24, Pt lives with his , he is independent, no home health services. For DME he has: Home O2, Bipap and nebulizer machine, from [facility], [place]. HCP is his , copy requested, to transport home at DC. PCP confirmed: Jair Huber. DCP: home, self care, CM to follow for DC needs.
[2024-01-24 10:10] LABS: Adenovirus PCR Not Detected (Not Detect.); Bordetella parapertussis PCR Not Detected (Not Detect.); Bordetella pertussis PCR Not Detected (Not Detect.); Chlamydia pneumoniae PCR Not Detected (Not Detect.); Coronavirus 229E PCR Not Detected (Not Detect.); Coronavirus HKU1 PCR Not Detected (Not Detect.); Coronavirus NL63 PCR Not Detected (Not Detect.); Coronavirus OC43 PCR Not Detected (Not Detect.); Human metapneumovirus PCR Not Detected (Not Detect.); Influenza A PCR Not Detected (Not Detect.); Influenza B PCR Not Detected (Not Detect.); Mycoplasma pneumoniae PCR Not Detected (Not Detect.); Parainfluenza 1 PCR Not Detected (Not Detect.); Parainfluenza 2 PCR Not Detected (Not Detect.); Parainfluenza 3 PCR Not Detected (Not Detect.); Parainfluenza 4 PCR Not Detected (Not Detect.); RSV PCR Not Detected (Not Detect.); Rhino/Enterovirus PCR Not Detected (Not Detect.)
[2024-01-24 10:11] LABS: SARS-CoV-2 PCR Not Detected (Not Detect.)
[2024-01-24 11:02] LABS: Glucose, Whole Blood 153 mg/dL (60-115)
--- NOTE | 2024-01-24 11:02 | PM.DS ---
DS: Providers Provider Date of Service: 01/24/24 Date of admission: 01/23/24 16:52 Date of discharge: 01/24/24 Primary care physician: Jair Huber I, MD Attending physician on discharge: Katrina Elder Discharging clinician: Kathy Tapia DS: Diagnosis Discharge Diagnosis (1) COPD exacerbation: Status: Acute DS: Summary Hospital Course Hospital Course: From H&P on the day of admission This is a 68-year-old male with a history of COPD on 2 L of supplemental oxygen with ambulation who presents to the emergency department with shortness of breath. He was seen in the emergency department on January 13 with shortness of breath and dry cough. At that time his workup was unremarkable and he was discharged home with a course of steroids. Shortly after he completed steroids he began having recurrent symptoms of shortness of breath and dry cough. He reports associated generalized malaise and denies associated fever or chills. He denies any recent sick contacts. He has not been hospitalized in the past several months. And has never been hospitalized for COPD exacerbation. In the emergency department he was afebrile with no leukocytosis. He was initially tachycardic and tachypneic on arrival. Chest x-ray showed concern over possible bibasilar infection. He received IV steroids, antibiotics, breathing treatments and breathing treatments able to due to persistent dyspnea and recurrent symptoms the decision was made to admit him to the hospital for further management. Acute exacerbation of COPD and possible pneumonia No white count, no fever, dry cough. No evidence of sepsis. Full RPP negative. procalcitonin 0.24. Patient was treated with systemic steroids, doxycycline and breathing treatments as well as symptomatic support for cough. His symptoms have improved significantly and he is requesting to be discharged. Patient has remained on room air and has been ambulating in his room without shortness of breath. BNP and troponin were also checked and were negative. Chest x-ray showed persistent bibasilar opacities concerning for of infection which is similar to his previous x-ray from 01/13. Recommend outpatient follow-up x-ray in the next 1-2 weeks to ensure resolution. Time Attestation Discharge Coordination Time (in mins): 35 Quality: Safe Use of Opioids Does Pt have an Active Cancer Diagnosis on the Problem List?: No Quality: Stroke Does the patient have a stroke diagnosis?: No Physical Exam Vital Signs: Vital Signs: Last Vital Signs Temp 97.5 F 01/24/24 07:39 Pulse 64 01/24/24 07:47 Resp 14 01/24/24 07:47 BP 147/67 H 01/24/24 07:39 Pulse Ox 93 01/24/24 07:39 O2 Del Method Room Air 01/24/24 03:34 Oxygen Flow Rate 2 01/23/24 14:05 BMI result Body Mass Index 33.6 Const: General: cooperative, comfortable, alert and awake Nutritional Appearance: overweight Orientation/consciousness: patient oriented x3 Resp: Effort & Inspection: normal respiratory effort, able to speak in complete sentences and no use of accessory muscles Cardio: Rate: regular rate GI: Inspection: No distended Palpation (GI): Soft to palpation and nontender Neuro: General: patient oriented x3, moves all extremities and CN's II-XI intact bilaterally DS: Data Data Completed and Pending Labs on day of discharge: Laboratory Results - last 24 hr 01/23/24 01/23/24 01/23/24 14:28 17:49 20:46 WBC 9.2 RBC 4.62 Hgb 13.6 L Hct 41.6 L MCV 90.0 MCH 29.4 MCHC 32.7 RDW 15.0 Plt Count 179 MPV 9.8 Immature Gran % (Auto) 1.1 H Neut % (Auto) 82.7 H Lymph % (Auto) 7.1 L [place] % (Auto) 7.6 Eos % (Auto) 1.2 Baso % (Auto) 0.3 Lymph # (Auto) 0.7 L [place] # (Auto) 0.7 Eos # (Auto) 0.1 Baso # (Auto) 0.0 Abs Immat Gran (auto) 0.10 H Absolute Neuts (auto) 7.6 Absolute Nucleated RBC 0.000 Nucleated RBC % (auto) 0.0 PT 9.9 L INR 0.9 Sodium 142 Potassium 4.8 Chloride 108 Carbon Dioxide 25 Anion Gap 14 BUN 54 H Creatinine 2.52 H Estim Creat Clear Calc 35.3 Estimated GFR 26 POC Glucose 239 H Random Glucose 117 H Lactic Acid 0.9 Calcium 9.6 Total Bilirubin 0.2 Direct Bilirubin < 0.2 AST 13 ALT 15 Alkaline Phosphatase 99 Troponin I High Sens 5.2 B-Natriuretic Peptide 12 Total Protein 6.8 Albumin 4.0 Procalcitonin 0.24 Respiratory Panel [place] See Note Adenovirus (Rapid PCR) Not Detected B.pert (TEM-PCR) Not Detected B.parapertussis DNA PCR Not Detected C. pneumoniae DNA (PCR) Not Detected Coronavirus OC43 (PCR) Not Detected Coronavirus HKU1 (PCR) Not Detected Coronavirus 229E (PCR) Not Detected Coronavirus NL63 (PCR) Not Detected Human Metapneumovir PCR Not Detected Influenza A (RT-PCR) Not Detected Influenza Type A (PCR) NEGATIVE Influenza B (RT-PCR) Not Detected Influenza Type B (PCR) NEGATIVE M. pneumoniae (PCR) Not Detected Parainfluenza 1 (PCR) Not Detected Parainfluenza 2 (PCR) Not Detected Parainfluenza 3 (PCR) Not Detected Parainfluenza 4 (PCR) Not Detected RSV (PCR) Not Detected RSV RNA Qual (PCR) NEGATIVE Entero/Rhino (PCR) Not Detected SARS-CoV-2 RNA (RT-PCR) NEGATIVE Not Detected 01/24/24 07:03 WBC RBC Hgb Hct MCV MCH MCHC RDW Plt Count MPV Immature Gran % (Auto) Neut % (Auto) Lymph % (Auto) [place] % (Auto) Eos % (Auto) Baso % (Auto) Lymph # (Auto) [place] # (Auto) Eos # (Auto) Baso # (Auto) Abs Immat Gran (auto) Absolute Neuts (auto) Absolute Nucleated RBC Nucleated RBC % (auto) PT INR Sodium Potassium Chloride Carbon Dioxide Anion Gap BUN Creatinine Estim Creat Clear Calc Estimated GFR POC Glucose 134 H Random Glucose Lactic Acid Calcium Total Bilirubin Direct Bilirubin AST ALT Alkaline Phosphatase Troponin I High Sens B-Natriuretic Peptide Total Protein Albumin Procalcitonin Respiratory Panel [place] Adenovirus (Rapid PCR) B.pert (TEM-PCR) B.parapertussis DNA PCR C. pneumoniae DNA (PCR) Coronavirus OC43 (PCR) Coronavirus HKU1 (PCR) Coronavirus 229E (PCR) Coronavirus NL63 (PCR) Human Metapneumovir PCR Influenza A (RT-PCR) Influenza Type A (PCR) Influenza B (RT-PCR) Influenza Type B (PCR) M. pneumoniae (PCR) Parainfluenza 1 (PCR) Parainfluenza 2 (PCR) Parainfluenza 3 (PCR) Parainfluenza 4 (PCR) RSV (PCR) RSV RNA Qual (PCR) Entero/Rhino (PCR) SARS-CoV-2 RNA (RT-PCR) Discharge Plan Discharge Anticipated Discharge Date/Time: 01/24/24 11:09 Patient Disposition: Home, Self-Care Referrals: Jair Huber MD [Primary Care Provider] - 1 Week Discharge Medications: New doxycycline monohydrate 100 mg tablet 100 mg PO Q12H 5 Days Qty: 10 0RF prednisone 10 mg tablet See Taper PO DIRECTED Qty: 30 0RF Taper: Prednisone 40 mg daily for 3 Days and 0 Hour 30 mg daily for 3 Days and 0 Hour 20 mg daily for 3 Days and 0 Hour 10 mg daily for 3 Days and 0 Hour Rx Instructions: see taper instructions Continued venlafaxine 75 mg capsule,extended release 24hr 225 mg PO DAILY amlodipine 5 mg tablet 5 mg PO DAILY lorazepam 0.5 mg tablet 0.5 mg PO Q8H PRN (Reason: Anxiety) omeprazole 20 mg capsule,delayed release(DR/EC) 20 mg PO DAILY@0630 polyethylene glycol 3350 17 gram/dose powder 17 g PO DAILY albuterol sulfate [Ventolin HFA] 90 mcg/actuation HFA aerosol inhaler 2 puff inhalation Q6H PRN (Reason: Shortness Of Breath Or Wheezing) aripiprazole 5 mg tablet 5 mg PO DAILY rosuvastatin 40 mg tablet 40 mg PO DAILY tiotropium bromide [Spiriva with HandiHaler] 18 mcg capsule, w/inhalation device 1 cap inhalation DAILY fenofibrate nanocrystallized 145 mg tablet 145 mg PO DAILY budesonide-formoterol [Symbicort] 160-4.5 mcg/actuation HFA aerosol inhaler 2 puff inhalation BID Jardiance 10 mg tablet 10 mg PO DAILY losartan 50 mg tablet 50 mg PO DAILY aspirin 81 mg Tablet,Delayed Release (Dr/Ec) 81 mg PO DAILY Activity on Discharge: As tolerated Stand Alone Forms: Patient Portal Discharge page Print Language: [place] Care Plan Goals: See below Health Concerns: Acute exacerbation of COPD Pneumonia Plan of Treatment: Complete course of antibiotics and steroid taper as prescribed Call to schedule a follow-up appointment with your PCP Recommend repeat chest x-ray in the next 1-2 weeks Assessment: See discharge summary
[2024-01-24] MEDS: Insulin Lispro 100 UNIT/ML 3 ML VIAL SUBCUT (11:17)
--- NOTE | 2024-01-24 13:07 | MHC.CM.PN ---
Pt has been medically cleared for DC, he will go home via private transport, plan is self care.
== END 2024-01-24 13:01 | disposition home or self-care (01) ==
LOC: HO.ED 16:19 → HO.EDOVER 17:06 → HO.IMC 17:15
PROVIDERS: Physician Assistant; Admitting Provider Physician Assistant Medical; Emergency Provider Emergency Medicine; PCP Anesthesiology; Visit Provider Physician Assistant Medical
DX: J44.1 Chronic obstructive pulmonary disease with (acute) exacerbation (principal); J18.9 Pneumonia, unspecified organism; R06.02 Shortness of breath; R05.9 Cough, unspecified; R07.89 Other chest pain; I12.9 Hypertensive chronic kidney disease with stage 1 through stage 4 chronic kidney disease, or unspecified chronic kidney disease; E11.22 Type 2 diabetes mellitus with diabetic chronic kidney disease; N18.30 Chronic kidney disease, stage 3 unspecified; I73.9 Peripheral vascular disease, unspecified; Z03.818 Encounter for observation for suspected exposure to other biological agents ruled out; Z79.899 Other long term (current) drug therapy
CPT/HCPCS: 0241U; 36415; 71046; 80048; 80076; 82947; 83605; 83880; 84145; 84484; 85025; 85610; 87040; 87633; 93005; 94640; 96365; 96366; 96367; 96372; 96375; 96376; 99222; 99285; J0456; J0696; J1644; J2919

== ENCOUNTER → 2024-01-23 14:07 | Outpatient (BNV) | payer MEDICARE, MEDICAID, SELFPAY | PROVIDERS: Admitting Provider Physician Assistant Medical; Emergency Provider Emergency Medicine; PCP Anesthesiology; Visit Provider Internal Medicine | DX: R00.0 Tachycardia, unspecified (principal) | CPT/HCPCS: 93010 ==

== ENCOUNTER → 2024-01-23 16:52 | Outpatient (BNV) | payer MEDICARE, MEDICAID, SELFPAY | PROVIDERS: Admitting Provider Physician Assistant Medical; Emergency Provider Emergency Medicine; PCP Anesthesiology; Visit Provider Physician Assistant Medical | DX: J44.1 Chronic obstructive pulmonary disease with (acute) exacerbation (principal) | CPT/HCPCS: 99223; 99239 ==

== ENCOUNTER 2024-02-05 17:03 | Emergency (ER) | payer MEDICARE, MEDICAID, SELFPAY ==
--- NOTE | ~2024-02-05 | XR_ITS ---
EXAMINATION: XR CHEST CLINICAL INFORMATION: COPD. COMPARISON: 01/23/2024 TECHNIQUE: 2 views of the chest were obtained. FINDINGS: Hyperinflation consistent with COPD. Linear densities at both bases noted favoring scarring or discoid atelectasis. Crowding of markings identified location presumably related to bullous disease. No acute abnormality is noted involving the heart, lungs, mediastinum, bony thorax or soft tissues. XR/XR chest 2V IMPRESSION: COPD. No active chest disease. Electronically signed by: Kang Richmond MD 02/05/2024 06:34 PM EDT
--- NOTE | ~2024-02-05 | CT_ITS ---
EXAMINATION: CT CHEST WITHOUT CONTRAST CLINICAL INFORMATION: Chest pain, dyspnea, persistent cough, fevers COMPARISON: Chest radiograph from the same day TECHNIQUE: Multidetector volumetric CT imaging of the chest was done. Axial MIP volume rendering provided. Sagittal and coronal reformatted images were obtained. This CT examination was performed using dose optimization techniques as appropriate, variously including the following: *Automated exposure control *Adjustment of mA and/or kV according to patient size (this includes techniques or standardized protocols for targeted exams where dose is matched to indication/reason for exam; i.e. extremities or head) *Use of iterative reconstruction technique DLP: 518 mGy-cm FINDINGS: LUNGS: Mild pleural-parenchymal scarring in the lung apices. Mild to moderate upper lobe predominant centrilobular emphysema. Mild bronchial wall thickening. No consolidation. Some linear atelectasis in the right lower lobe and to a lesser extent in the lingula and right middle lobe and a few punctate micronodules, no suspicious pulmonary nodules MEDIASTINUM: Thyroid is unremarkable. No mediastinal lymphadenopathy. Normal heart size, no pericardial effusion. Atherosclerotic calcification in the thoracic aorta. CORONARY ARTERY CALCIFICATION: Extensive three-vessel coronary artery disease. PLEURA: There is no pleural effusion. No pleural mass or thickening. AXILLA: Bilateral gynecomastia. No axillary lymphadenopathy. UPPER ABDOMEN: 1.9 cm nodule in the right adrenal gland measuring 2 Hounsfield units consistent with adenoma. 1.4 cm intermediate attenuation partially exophytic lesion in the upper pole of the left kidney OSSEOUS STRUCTURES: Mild degenerative change and scoliotic curvature in the spine. CT/CT chest wo IV con IMPRESSION: 1. Mild to moderate upper lobe predominant centrilobular emphysema. Mild bronchial wall thickening. No consolidation. 2. Extensive three-vessel coronary artery disease. 3. 1.9 cm right adrenal adenoma. 4. 1.4 cm intermediate attenuation partially exophytic lesion in the upper pole of the left kidney. This may represent a hemorrhagic/proteinaceous cyst, however, a solid lesion is not excluded. Recommend further evaluation with ultrasound. Fleischner guidelines were followed. Electronically signed by: Grayson Tim MD 02/05/2024 08:26 PM EDT
[2024-02-05 17:13] VITALS: BP 119/62; PULSE 114; RESP 22; TEMP 36.6; O2SAT 94; BMI 33.7
--- NOTE | 2024-02-05 17:15 | ECG_ITS ---
Test Reason : tachycardia Blood Pressure : / mmHG Vent. Rate : 114 BPM Atrial Rate : 114 BPM P-R Int : 182 ms QRS Dur : 072 ms QT Int : 308 ms P-R-T Axes : 067 035 048 degrees QTc Int : 424 ms Sinus tachycardia Otherwise normal ECG When compared with ECG of 23-JAN-2024 14:07, No significant change was found Referred By: Monet Hernadez Electronically Signed By:MIKI WAGGONER
--- NOTE | 2024-02-05 17:18 | ED.SOB ---
HPI - SOB/Dyspnea General Chief Complaint: Dyspnea Stated Complaint: sob Time Seen by Provider: 02/05/24 18:48 Source: patient, family and old records reviewed Mode of arrival: ambulatory Limitations: no limitations History of Present Illness ED Provider: ROOPA PORTER Narrative: 68 yo male with PMH of CKD, COPD on 2L for ambulation just admitted here and treated for COPD/pneumonia with DC on 01/23 discharged on prednisone taper which he last dosed on thursday and doxycycline he returns as he noted worsening cough, subjective chills/fevers. He notes he feels sick again and short of breath. His [employer] philosophy professor advised him to seek care again in the ER MD elicited complaint: shortness of breath and cough Pertinent past history: COPD Onset (ago): day(s) (2) Context: recent illness Timing: constant Severity: moderate Exacerbating factors: exertion and coughing Relieving factors: oxygen, rest and bronchodilators Known history of: COPD Associated symptoms: cough and other (fevers/chills) Related Data Home Medications ?Medication ?Instructions ?Recorded ?Confirmed albuterol sulfate 90 mcg/actuation 2 puff inhalation Q6H PRN 01/23/24 01/23/24 aerosol inhaler (Ventolin HFA) Shortness Of Breath Or Wheezing amlodipine 5 mg tablet 5 mg PO DAILY 01/23/24 01/23/24 aripiprazole 5 mg tablet 5 mg PO DAILY 01/23/24 01/23/24 aspirin 81 mg tablet,delayed 81 mg PO DAILY 01/23/24 01/23/24 release budesonide-formoterol HFA 160 2 puff inhalation BID 01/23/24 01/23/24 mcg-4.5 mcg/actuation aerosol inhaler (Symbicort) empagliflozin 10 mg tablet 10 mg PO DAILY 01/23/24 01/23/24 (Jardiance) fenofibrate nanocrystallized 145 145 mg PO DAILY 01/23/24 01/23/24 mg tablet lorazepam 0.5 mg tablet 0.5 mg PO Q8H PRN Anxiety 01/23/24 01/23/24 losartan 50 mg tablet 50 mg PO DAILY 01/23/24 01/23/24 omeprazole 20 mg capsule,delayed 20 mg PO DAILY@0630 01/23/24 01/23/24 release polyethylene glycol 3350 17 17 g PO DAILY 01/23/24 01/23/24 gram/dose oral powder rosuvastatin 40 mg tablet 40 mg PO DAILY 01/23/24 01/23/24 tiotropium bromide 18 mcg capsule 1 cap inhalation DAILY 01/23/24 01/23/24 with inhalation device (Spiriva with HandiHaler) venlafaxine 75 mg capsule,extended 225 mg PO DAILY 01/23/24 01/23/24 release 24 hr Previous Rx's ?Medication ?Instructions ?Recorded doxycycline monohydrate 100 mg 100 mg PO Q12H 5 days #10 tabs 01/24/24 tablet prednisone 10 mg tablet See Taper PO DIRECTED #30 tabs 01/24/24 prednisone 10 mg tablet 10 mg PO DAILY #7 tabs 02/05/24 Allergies Allergy/AdvReac Type Severity Reaction Status Date / Time codeine Allergy Headache Verified 02/05/24 17:14 Review of Systems Review of Systems: Constitutional : No Fever, No Chills ENT/Mouth : No Hoarseness, No sore throat, No Rhinorrhea Eyes: No Redness, No Discharge, No Vision Changes Cardiovascular : No Chest Pain, positive SOB, positive Dyspnea on Exertion, No Edema Respiratory : positive Cough, No Sputum, positive Wheezing, Gastrointestinal : No Nausea, No Vomiting, No Diarrhea, No abdominal Pain Genitourinary : No Dysuria, No Hematuria Musculoskeletal : No joint pain, No Myalgias Skin : No rash Neuro : No Weakness, No Numbness, No Headache Psych : No anxiety, depression Heme/Lymph: No Bruising, No Bleeding Endocrine : No Polyuria, No Polydipsia All other systems reviewed and are negative PMFSH Past Medical History Attestation statement: The following information was validated with the patient. Source: old records reviewed Medical History Hypertension Peripheral vascular disease Diabetes Common variable immunodeficiency COPD (chronic obstructive pulmonary disease) Social History Social History Household Members: Spouse Housing: Apartment Do you presently have visiting nurse or other home services: No Alcohol intake: current Alcohol intake frequency: holidays/special occasions only Patient Tobacco Use Status: Former Tobacco user Smoked in Last 30 Days: No Use of substances other than those prescribed or required for medical reasons: No Advance Directives: No Advance Directives Information Provided: No Do you have a plan to hurt others: No Plan service: No Physical Exam Vital Signs: Vital Signs: Last Vital Signs Temp 98.7 F 02/05/24 20:25 Pulse 93 02/05/24 20:25 Resp 13 02/05/24 20:25 BP 151/58 H 02/05/24 20:25 Pulse Ox 93 02/05/24 20:25 O2 Del Method Room Air 02/05/24 20:25 Oxygen Flow Rate 2 02/05/24 17:13 BMI result Body Mass Index 33.7 Appearance: Alert. Oriented X3. No acute distress. Eyes: Pupils equal, round and reactive to light. ENT: Pharynx normal. Neck: Normal inspection. Neck supple. CVS: Normal heart rate and rhythm. Pulses normal. Respiratory: No respiratory distress. Breath sounds very diminished throughout Abdomen: Soft and nontender. Skin: Skin warm and dry. Normal skin color. Normal skin turgor. Extremities: trace pitting bilateral lower extremity edema. No calf ttp Neuro: Oriented X 3. No motor deficit. No sensory deficit. Course Course Course Narrative: This is a Rapid Medical Examination (RME) performed by Tommy Hernadez PA-C in triage. Full HPI, ROS, assessment and treatment plan per primary provider in the Main ED. 68 yo male hx of COPD on 2 L NC with exertion, emphysema, CKD stage 3, HTN, HLD, DM, depression here w/ increased SOB. assoc dry cough and fever. admitted on 01/22 for COPD exacerbation, has been unable to follow up out patient. denies chest pain, palpitations. + tachycardic, satting 95% on 2L. lung sounds diminished. Plan: labs, cxr, ekg, viral swabs Medications Administered Discontinued Medications Generic Name Dose Route Start Last Admin Trade Name Freq PRN Reason Stop Dose Admin Acetaminophen 650 mg 02/05/24 19:33 02/05/24 20:13 Acetaminophen 325 Mg Tablet PO 02/05/24 19:34 650 mg ONCE ONE Administration Methylprednisolone Sodium Succinate 60 mg 02/05/24 19:33 02/05/24 20:12 Methylprednisolone Sod Succ 125 Mg/2 Ml Vial IVPUSH 02/05/24 19:34 60 mg ONCE ONE Administration Medical Decision Making Medical Decision Making MDM Narrative: 68 yo male with PMH of CKD, COPD on 2L for ambulation here with c/o cough, chest congestion, feeling worse with COPD coming off of prednisone taper at this time will obtain labs, infl markers, ddimer, imaging for pneumonia. IV steroids and neb ordered. He denies chest pain. Dyspnea is worse with ambulation Differential Diagnosis Differential Diagnoses: The differential diagnosis associated with the presentation includes URI, pneumonia, bronchitis Admission/Observation Consideration of admission/observation: Escalation of care including admission/observation considered no hypoxia negative troponin negative ddimer no pneumonia neg CRP can be managed as outpatient after long discussion plan is to rest and take it easy this weekend and call cardiology to make sure this is not dyspnea due to any cardiac issues his father of [place] at 51 - he has had repeated troponin here that are negative and I only consider this given the coronary ds on CT scan. They are comfortable going home to follow up with their system operation superintendent will start on prednisone 10mg daily Lab Data MDM Lab Attestation statement: I reviewed the patient's lab results. ddimer negative 02/05/24 17:30 02/05/24 17:30 Labs: Lab Results 02/05/24 02/05/24 02/05/24 Range/Units 17:30 17:34 19:57 WBC 11.8 H (4.8-10.8) X10*3/uL RBC 4.52 L (4.60-5.80) X10*6/uL Hgb 13.5 L (14.0-18.0) g/dl Hct 40.2 L (42.0-52.0) % MCV 88.9 (80.0-98.0) fL MCH 29.9 (27.0-33.0) pg MCHC 33.6 (31.0-36.0) g/dl RDW 15.0 (11.0-16.0) % Plt Count 223 (160-400) X10*3/uL MPV 9.9 (9.4-12.4) fL Immature Gran % (Auto) 0.9 H (0.0-0.4) % Neut % (Auto) 81.0 H (45-73) % Lymph % (Auto) 9.5 L (20-40) % Dewitt % (Auto) 7.4 (2-11) % Eos % (Auto) 0.9 (0-4) % Baso % (Auto) 0.3 (0-2) % Lymph # (Auto) 1.1 L (1.2-4.9) X10*3/uL [place] # (Auto) 0.9 (0.1-1.2) X10*3/uL Eos # (Auto) 0.1 (0.0-0.4) X10*3/uL Baso # (Auto) 0.0 (0.0-0.2) X10*3/uL Abs Immat Gran (auto) 0.11 H (0.00-0.03) X10*3/uL Absolute Neuts (auto) 9.5 H (2.0-8.3) x10*3/uL Absolute Nucleated RBC 0.000 (0.0-0.012) X10*3/uL Nucleated RBC % (auto) 0.0 (0.0-0.2) /100WBC PT 10.0 L (10.9-12.4) SEC INR 0.9 (0.9-1.1) D-Dimer High Sensitivty 218 NG/ML VBG pH 7.48 H (7.32-7.43) VBG pCO2 35 mmHg VBG pO2 81 mmHg VBG HCO3 26 (22-26) mmol/L VBG O2 Saturation 98.0 % VBG Base Excess 3.0 mmol/L Sodium 145 (135-145) mmol/L Potassium 4.7 (3.3-5.1) mmol/L Chloride 110 H (96-108) mmol/L Carbon Dioxide 22 (22-29) mmol/L Anion Gap 18 (12-20) BUN 58 H (9-16) mg/dL Creatinine 2.63 H (0.5-1.4) mg/dL Estim Creat Clear Calc 33.7 Estimated GFR 24 Random Glucose 119 H (60-115) mg/dL Lactic Acid 1.0 (0.5-2.0) mmol/L Calcium 9.4 (8.4-10.2) mg/dL Magnesium 2.1 (1.6-2.6) mg/dL Total Bilirubin 0.2 (0.0-1.0) mg/dL AST 16 (5-37) U/L ALT 16 (0-40) U/L Alkaline Phosphatase 100 (39-117) U/L Troponin I High Sens 4.2 (<3.5-35.0) ng/L C-Reactive Protein 0.44 (< or = 0.50) mg/dL B-Natriuretic Peptide 12 (<100) pg/mL Total Protein 7.1 (6.5-8.0) g/dL Albumin 3.6 (3.5-5.0) g/dL Influenza Type A (PCR) NEGATIVE (Negative) Influenza Type B (PCR) NEGATIVE (Negative) RSV RNA Qual (PCR) NEGATIVE (Negative) SARS-CoV-2 RNA (RT-PCR) NEGATIVE (Negative) Independent Interpretation I performed an independent interpretation of an: EKG, Plain X-Ray (normal) and CT Scan (no consolidation) Interpretation: Rate: 114 Rhythm: sinus tachycardia [place]: left Normal P waves. Normal [place]. Normal QRS complex. ST T wave : no BILL, flat t wave V2, inverted t wave V1 qTC: 424 prior studies: no sig ischemia The study has been interpreted contemporaneously by me. . Radiology Impression Discussion of test interpretation with radiology: I have reviewed the radiologist's reading. Independent Historian Clinical information obtained from an independent historian. History obtained from or confirmed by: Spouse External Record Review External record reviewed: Inpatient record Discharge Plan Discharge Clinical Impression: COPD exacerbation Patient Disposition: Home, Self-Care Instructions: COPD (Chronic Obstructive Pulmonary Disease) (ED) Additional Instructions: no pneumonia on CT scan there is a left sided renal mass no blood clot noted EKG and heart tests negative on repeat testing here even in January The concern is that CT scan showed 3 vessel coronary artery disease and you need to call your system operation superintendent on Thursday return at any time for any CONCERNING symptoms continue to follow up on L sided kidney lesion LUNGS: Mild pleural-parenchymal scarring in the lung apices. Mild to moderate upper lobe predominant centrilobular emphysema. Mild bronchial wall thickening. No consolidation. Some linear atelectasis in the right lower lobe and to a lesser extent in the lingula and right middle lobe and a few punctate micronodules, no suspicious pulmonary nodules MEDIASTINUM: Thyroid is unremarkable. No mediastinal lymphadenopathy. Normal heart size, no pericardial effusion. Atherosclerotic calcification in the thoracic aorta. CORONARY ARTERY CALCIFICATION: Extensive three-vessel coronary artery disease. Prescriptions: New prednisone 10 mg tablet 10 mg PO DAILY Qty: 7 0RF No Action venlafaxine 75 mg capsule,extended release 24hr 225 mg PO DAILY amlodipine 5 mg tablet 5 mg PO DAILY lorazepam 0.5 mg tablet 0.5 mg PO Q8H PRN (Reason: Anxiety) omeprazole 20 mg capsule,delayed release(DR/EC) 20 mg PO DAILY@0630 polyethylene glycol 3350 17 gram/dose powder 17 g PO DAILY albuterol sulfate [Ventolin HFA] 90 mcg/actuation HFA aerosol inhaler 2 puff inhalation Q6H PRN (Reason: Shortness Of Breath Or Wheezing) aripiprazole 5 mg tablet 5 mg PO DAILY rosuvastatin 40 mg tablet 40 mg PO DAILY tiotropium bromide [Spiriva with HandiHaler] 18 mcg capsule, w/inhalation device 1 cap inhalation DAILY fenofibrate nanocrystallized 145 mg tablet 145 mg PO DAILY budesonide-formoterol [Symbicort] 160-4.5 mcg/actuation HFA aerosol inhaler 2 puff inhalation BID Jardiance 10 mg tablet 10 mg PO DAILY losartan 50 mg tablet 50 mg PO DAILY aspirin 81 mg Tablet,Delayed Release (Dr/Ec) 81 mg PO DAILY doxycycline monohydrate 100 mg tablet 100 mg PO Q12H 5 Days Qty: 10 0RF prednisone 10 mg tablet See Taper PO DIRECTED Qty: 30 0RF Taper: Prednisone 40 mg daily for 3 Days and 0 Hour 30 mg daily for 3 Days and 0 Hour 20 mg daily for 3 Days and 0 Hour 10 mg daily for 3 Days and 0 Hour Rx Instructions: see taper instructions Print Language: Cymro
[2024-02-05 17:38] LABS: MANUAL DIFF FLAG NO
[2024-02-05 17:39] LABS: Basophils Percent Auto 0.3 % (0-2); Eosinophils Absolute Auto 0.1 X10*3/uL (0.0-0.4); Eosinophils Percent Auto 0.9 % (0-4); Hematocrit 40.2 % (42.0-52.0); Hemoglobin 13.5 g/dl (14.0-18.0); Imm Gran Abs Auto 0.11 X10*3/uL (0.00-0.03); Imm Gran Pct Auto 0.9 % (0.0-0.4); Lymphocytes Absolute Auto 1.1 X10*3/uL (1.2-4.9); Lymphocytes Percent Auto 9.5 % (20-40); Mean Corpuscular HGB Conc 33.6 g/dl (31.0-36.0); Mean Corpuscular Hemoglobin 29.9 pg (27.0-33.0); Mean Corpuscular Volume 88.9 fL (80.0-98.0); Mean Platelet Volume 9.9 fL (9.4-12.4); Monocytes Absolute Auto 0.9 X10*3/uL (0.1-1.2); Monocytes Percent Auto 7.4 % (2-11); Neutrophils Absolute Auto 9.5 x10*3/uL (2.0-8.3); Platelet Count 223 X10*3/uL (160-400); Red Blood Count 4.52 X10*6/uL (4.60-5.80); White Blood Count 11.8 X10*3/uL (4.8-10.8)
[2024-02-05 17:40] LABS: VBG HCO3 26 mmol/L (22-26); VBG pCO2 35 mmHg; VBG pH 7.48 (7.32-7.43); VBG pO2 81 mmHg
[2024-02-05 17:42] LABS: Venous Blood Gas Refer to POC result
[2024-02-05 17:48] LABS: INTERNATIONAL NORM RATIO 0.9 (0.9-1.1)
[2024-02-05 17:53] LABS: Alanine Aminotransferase 16 U/L (0-40); Albumin Level 3.6 g/dL (3.5-5.0); Alkaline Phosphatase 100 U/L (39-117); Anion Gap 18 (12-20); Aspartate Amino Transferase 16 U/L (5-37); Bilirubin Total 0.2 mg/dL (0.0-1.0); Blood Urea Nitrogen 58 mg/dL (9-16); Calcium 9.4 mg/dL (8.4-10.2); Carbon Dioxide 22 mmol/L (22-29); Chloride 110 mmol/L (96-108); Creatinine Clr Calc Pharmacy 33.7; Estimated Glomerular Filt Rate 24; Glucose Random 119 mg/dL (60-115); Magnesium 2.1 mg/dL (1.6-2.6); Potassium 4.7 mmol/L (3.3-5.1); Sodium 145 mmol/L (135-145); Total Protein 7.1 g/dL (6.5-8.0)
[2024-02-05 18:02] LABS: Troponin-I High Sensitivity 4.2 ng/L (<3.5-35.0)
[2024-02-05 18:22] LABS: Influenza A PCR NEGATIVE (Negative); Influenza B PCR NEGATIVE (Negative); Resp Syncy Virus RNA Qual PCR NEGATIVE (Negative); SARS COV2 PCR INHOUSE NEGATIVE (Negative)
[2024-02-05 18:32] VITALS: BP 137/83; PULSE 103; RESP 15; TEMP 37.2; O2SAT 94
[2024-02-05] MEDS: methylPREDNISolone Sod Succ 125 MG/2 ML VIAL 60 MG IVPUSH (20:12)
[2024-02-05] MEDS: Acetaminophen 325 MG TABLET 650 MG PO (20:13)
[2024-02-05 20:17] LABS: C Reactive Protein 0.44 mg/dL (< or = 0.50)
[2024-02-05 20:25] VITALS: BP 151/58; PULSE 93; RESP 13; TEMP 37.1; O2SAT 93
[2024-02-05 20:32] LABS: B Type Natriuretic Peptide 12 pg/mL (<100)
[2024-02-05 20:41] LABS: D Dimer High Sensitivity 218 NG/ML
[2024-02-05 21:50] VITALS: BP 131/53; PULSE 91; RESP 13; TEMP 36.9; O2SAT 94
[2024-02-05 22:42] VITALS: BP 131/53; PULSE 91; RESP 13; TEMP 36.9; O2SAT 94
== END 2024-02-05 22:43 | disposition home or self-care (01) ==
PROVIDERS: Physician Assistant Medical; Emergency Provider Emergency Medicine; PCP Family Medicine
DX: J44.1 Chronic obstructive pulmonary disease with (acute) exacerbation (principal); R06.02 Shortness of breath; R05.9 Cough, unspecified; R50.9 Fever, unspecified; R00.0 Tachycardia, unspecified; R07.89 Other chest pain; Z99.81 Dependence on supplemental oxygen; Z79.899 Other long term (current) drug therapy; Z03.818 Encounter for observation for suspected exposure to other biological agents ruled out
CPT/HCPCS: 0241U; 36415; 71046; 71250; 80053; 82803; 83605; 83735; 83880; 84484; 85025; 85379; 85610; 86140; 87040; 93005; 99284; 99285; J2919

== ENCOUNTER → 2024-02-05 17:15 | Outpatient (BNV) | payer MEDICARE, MEDICAID, SELFPAY | PROVIDERS: Emergency Provider Emergency Medicine; PCP Family Medicine; Visit Provider Internal Medicine | DX: R00.0 Tachycardia, unspecified (principal) | CPT/HCPCS: 93010 ==

== ENCOUNTER 2024-05-01 15:54 | Emergency (ER) | payer MEDICARE, MEDICAID, SELFPAY ==
--- NOTE | ~2024-05-01 | XR_ITS ---
CLINICAL HISTORY: cough, SOB 2 view chest x-ray Comparison: CR/MS/SR - XR CHEST 2V - 02/05/24 18:03 EDT Findings: There is airspace opacity within the right middle lobe. There is a linear opacity within the right lower lobe. Left lung is clear. No pleural effusion. Right middle lobe atelectasis and/or infiltrate. Heart size is normal. No acute fracture. IMPRESSION: Linear focus of atelectasis or scarring within the right lower lobe. This document has been electronically signed by: Heena Giraldo MD on 05/01/2024 17:09:38
[2024-05-01 16:09] VITALS: BP 150/77; PULSE 96; RESP 18; TEMP 36.7; O2SAT 97; BMI 34.6
--- NOTE | 2024-05-01 16:11 | ED.GENADULT ---
HPI - General Adult General Chief complaint: Upper Respiratory Symptoms Stated complaint: sob, ?bronchitis Time Seen by Provider: 05/01/24 23:21 Source: patient and family () Mode of arrival: ambulatory Limitations: no limitations History of Present Illness ED Provider: Dr. Jamey Freeman HPI narrative: 68-year-old male with a history of chronic kidney disease, COPD on 2 L of oxygen via nasal cannula, pneumonia, bronchitis who presents emergency department for evaluation of 3 days of increasing shortness of breath, cough productive of thick yellow sputum, pleuritic chest pain. Patient also states that he has a crackly/rattling sensation in his chest. The patient denied fever, chills, he was had nausea but no vomiting or diarrhea. He does have myalgias and arthralgias. Related Data Home Medications ?Medication ?Instructions ?Recorded ?Confirmed albuterol sulfate 90 mcg/actuation 2 puff inhalation Q6H PRN 01/23/24 01/23/24 aerosol inhaler (Ventolin HFA) Shortness Of Breath Or Wheezing amlodipine 5 mg tablet 5 mg PO DAILY 01/23/24 01/23/24 aripiprazole 5 mg tablet 5 mg PO DAILY 01/23/24 01/23/24 aspirin 81 mg tablet,delayed 81 mg PO DAILY 01/23/24 01/23/24 release budesonide-formoterol HFA 160 2 puff inhalation BID 01/23/24 01/23/24 mcg-4.5 mcg/actuation aerosol inhaler (Symbicort) empagliflozin 10 mg tablet 10 mg PO DAILY 01/23/24 01/23/24 (Jardiance) fenofibrate nanocrystallized 145 145 mg PO DAILY 01/23/24 01/23/24 mg tablet lorazepam 0.5 mg tablet 0.5 mg PO Q8H PRN Anxiety 01/23/24 01/23/24 losartan 50 mg tablet 50 mg PO DAILY 01/23/24 01/23/24 omeprazole 20 mg capsule,delayed 20 mg PO DAILY@0630 01/23/24 01/23/24 release polyethylene glycol 3350 17 17 g PO DAILY 01/23/24 01/23/24 gram/dose oral powder rosuvastatin 40 mg tablet 40 mg PO DAILY 01/23/24 01/23/24 tiotropium bromide 18 mcg capsule 1 cap inhalation DAILY 01/23/24 01/23/24 with inhalation device (Spiriva with HandiHaler) venlafaxine 75 mg capsule,extended 225 mg PO DAILY 01/23/24 01/23/24 release 24 hr Previous Rx's ?Medication ?Instructions ?Recorded doxycycline monohydrate 100 mg 100 mg PO Q12H 5 days #10 tabs 01/24/24 tablet prednisone 10 mg tablet See Taper PO DIRECTED #30 tabs 01/24/24 prednisone 10 mg tablet 10 mg PO DAILY #7 tabs 02/05/24 doxycycline hyclate 100 mg tablet 100 mg PO Q12H 7 days #14 tabs 05/01/24 prednisone 20 mg tablet 60 mg (3 x 20 mg) PO DAILY 5 days 05/01/24 #15 tabs Allergies Allergy/AdvReac Type Severity Reaction Status Date / Time codeine Allergy Headache Verified 05/01/24 16:09 Review of Systems Review of Systems: Yes all other systems are reviewed and are negative [facility] Past Medical History [facility] Narrative: Social history: Patient was in his is here in the emergency department with him. The patient denies tobacco and alcohol use. Medical History Hypertension Peripheral vascular disease Diabetes Common variable immunodeficiency COPD (chronic obstructive pulmonary disease) Social History Social History Household Members: Spouse Housing: Apartment Do you presently have visiting nurse or other home services: No Alcohol intake: never Patient Tobacco Use Status: Former Tobacco user Smoked in Last 30 Days: No Use of substances other than those prescribed or required for medical reasons: No Advance Directives: No Advance Directives Information Provided: No Do you have a plan to hurt others: No Plan service: No Physical Exam ED Vital Signs: Vital Signs - 24 hr 05/01/24 16:09 05/01/24 19:26 05/01/24 23:26 Temperature 98.1 F 97.2 F 97.7 F Pulse Rate 96 81 83 Respiratory Rate 18 18 18 Blood Pressure 150/77 H 150/79 H 150/78 H Pulse Oximetry 97 96 98 Oxygen Delivery Method Nasal Cannula Nasal Cannula Nasal Cannula Oxygen Flow Rate 2 05/01/24 23:27 05/01/24 23:57 Temperature 97.7 F Pulse Rate 83 Respiratory Rate 18 Blood Pressure 150/78 H Pulse Oximetry 98 98 Oxygen Delivery Method Nasal Cannula Nasal Cannula Oxygen Flow Rate 2 BMI result Body Mass Index 34.6 Vital signs did reveal an elevated blood pressure otherwise unremarkable Exam: General: Awake, alert in no distress Head: Normocephalic, atraumatic EENT: PERRL, Lids normal, sclera normal, conjunctiva normal, nose normal , ears normal, throat without erythema or exudates Neck: Supple, no adenopathy Lung: breath sounds symmetric, no wheezing, rales or rhonchi Chest: symmetric movement, nontender Heart: regular rate and rhythm, normal S1, S2 no murmurs or rubs Abdomen: soft, non-tender, nondistended, normal bowel sounds Back: no vertebral tenderness, no CVAT Extremities: no deformities, moves all extremities symmetrically Neuro: Awake, alert, oriented, normal speech, cranial nerves intact, moves all extremities symmetrically Psych: Pleasant, cooperative Course Course Course Narrative: RME performed by Padmini Abad PA-C. Patient is a 68 year old assigned male at presenting to the emergency department with increasing shortness of breath. Patient is on oxygen at baseline. Detailed physical exam and review of systems are deferred to the day treatment clinician/art therapist. EKG, labs, imaging, and swabs ordered. Patient placed back in the waiting room pending room availability and results. Medications Administered Discontinued Medications Generic Name Dose Route Start Last Admin Trade Name Freq PRN Reason Stop Dose Admin Doxycycline Monohydrate 100 mg 05/01/24 23:43 05/01/24 23:49 Doxycycline Monohydrate 100 Mg Capsule PO 05/01/24 23:44 100 mg ONCE ONE Administration Prednisone 60 mg 05/01/24 23:43 05/01/24 23:49 Prednisone 20 Mg Tablet PO 05/01/24 23:44 60 mg ONCE ONE Administration Medical Decision Making Medical Decision Making MDM Narrative: 68-year-old male with a history of chronic kidney disease, COPD on 2 L of oxygen via nasal cannula, pneumonia, bronchitis who presents emergency department for evaluation of 3 days of increasing shortness of breath, cough productive of thick yellow sputum, pleuritic chest pain. Patient also states that he has a crackly/rattling sensation in his chest. Vital signs revealed an elevated blood pressure otherwise unremarkable. Examination was unremarkable. Differential diagnosis: ?Includes but is not limited to pneumonia, bronchitis, viral URI, anemia, electrolyte abnormalities Course: My interpretation patient's laboratory evaluation is as follows: CBC was unremarkable. Potassium elevated at 5.3. BUN and creatinine elevated 49 and 2.36-this is chronic and consistent with his chronic kidney disease. Patient's COVID-19, influenza and RSV were negative. Chest x-ray revealed no clear evidence for pneumonia, patient does have some scarring/atelectasis consistent with a COPD. Presentation is consistent with a bacterial bronchitis with COPD exacerbation. Patient was started on doxycycline 100 mg q.12 hours x7 days. He was also started on a pulse dose of prednisone 60 mg once a day x5 days. The patient was given printed and verbal instructions and discharged home. Admission/Observation Consideration of admission/observation: Escalation of care including admission/observation considered (Yes) Lab Data 05/01/24 16:49 05/01/24 16:49 Labs: Lab Results 05/01/24 Range/Units 16:49 WBC 8.1 (4.8-10.8) X10*3/uL RBC 4.30 L (4.60-5.80) X10*6/uL Hgb 13.0 L (14.0-18.0) g/dl Hct 39.4 L (42.0-52.0) % MCV 91.6 (80.0-98.0) fL MCH 30.2 (27.0-33.0) pg MCHC 33.0 (31.0-36.0) g/dl RDW 14.9 (11.0-16.0) % Plt Count 209 (160-400) X10*3/uL MPV 9.8 (9.4-12.4) fL Immature Gran % (Auto) 0.6 H (0.0-0.4) % Neut % (Auto) 74.2 H (45-73) % Lymph % (Auto) 10.7 L (20-40) % Cook % (Auto) 10.1 (2-11) % Eos % (Auto) 3.3 (0-4) % Baso % (Auto) 1.1 (0-2) % Lymph # (Auto) 0.9 L (1.2-4.9) X10*3/uL Cook # (Auto) 0.8 (0.1-1.2) X10*3/uL Eos # (Auto) 0.3 (0.0-0.4) X10*3/uL Baso # (Auto) 0.1 (0.0-0.2) X10*3/uL Abs Immat Gran (auto) 0.05 H (0.00-0.03) X10*3/uL Absolute Neuts (auto) 6.0 (2.0-8.3) x10*3/uL Absolute Nucleated RBC 0.000 (0.0-0.012) X10*3/uL Nucleated RBC % (auto) 0.0 (0.0-0.2) /100WBC Sodium 141 (135-145) mmol/L Potassium 5.3 H (3.3-5.1) mmol/L Chloride 109 H (96-108) mmol/L Carbon Dioxide 25 (22-29) mmol/L Anion Gap 12 (12-20) BUN 49 H (9-16) mg/dL Creatinine 2.36 H (0.5-1.4) mg/dL Estim Creat Clear Calc 38.1 Estimated GFR 28 Random Glucose 79 (60-115) mg/dL Calcium 9.7 (8.4-10.2) mg/dL Magnesium 2.1 (1.6-2.6) mg/dL Total Bilirubin 0.1 (0.0-1.0) mg/dL AST 17 (5-37) U/L ALT 12 (0-40) U/L Alkaline Phosphatase 85 (39-117) U/L Troponin I High Sens 3.6 (<3.5-35.0) ng/L Total Protein 7.6 (6.5-8.0) g/dL Albumin 4.1 (3.5-5.0) g/dL Influenza Type A (PCR) NEGATIVE (Negative) Influenza Type B (PCR) NEGATIVE (Negative) RSV RNA Qual (PCR) NEGATIVE (Negative) SARS-CoV-2 RNA (RT-PCR) NEGATIVE (Negative) Radiology Impression Discussion of test interpretation with radiology: I have reviewed the radiologist's reading. Radiologist Impression: 2 view chest x-ray Comparison: CR/IA/SR - XR CHEST 2V - 02/05/24 18:03 EDT Findings: There is airspace opacity within the right middle lobe. There is a linear opacity within the right lower lobe. Left lung is clear. No pleural effusion. Right middle lobe atelectasis and/or infiltrate. Heart size is normal. No acute fracture. IMPRESSION: Linear focus of atelectasis or scarring within the right lower lobe. This document has been electronically signed by: Heena Giraldo MD on 05/01/2024 17:09:38 Discharge Plan Discharge Clinical Impression: Acute bronchitis, Chronic obstructive pulmonary disease with acute exacerbation Patient Disposition: Home, Self-Care Instructions: Acute Bronchitis (ED) Additional Instructions: Your blood work was unremarkable and consistent with your baseline medical condition. Your chest x-ray showed no obvious pneumonia at this time which is reassuring He was symptoms are consistent with bronchitis which is causing a flare-up of your COPD. Take doxycycline 100 mg, 1 pill every 12 hours for 7 days Take prednisone 20 mg pills, 3 pills once a day for 5 days. While you ?are taking prednisone, do not take any NSAIDs (Motrin, Advil, ibuprofen, Aleve, naproxen). Follow-up with your doctor in 2 days. Please return to the emergency department if your symptoms get worse or if you develop any symptoms that are concerning to you. Prescriptions: New prednisone 20 mg tablet 60 mg PO DAILY 5 Days Qty: 15 0RF doxycycline hyclate 100 mg tablet 100 mg PO Q12H 7 Days Qty: 14 0RF No Action venlafaxine 75 mg capsule,extended release 24hr 225 mg PO DAILY amlodipine 5 mg tablet 5 mg PO DAILY lorazepam 0.5 mg tablet 0.5 mg PO Q8H PRN (Reason: Anxiety) omeprazole 20 mg capsule,delayed release(DR/EC) 20 mg PO DAILY@0630 polyethylene glycol 3350 17 gram/dose powder 17 g PO DAILY albuterol sulfate [Ventolin HFA] 90 mcg/actuation HFA aerosol inhaler 2 puff inhalation Q6H PRN (Reason: Shortness Of Breath Or Wheezing) aripiprazole 5 mg tablet 5 mg PO DAILY rosuvastatin 40 mg tablet 40 mg PO DAILY tiotropium bromide [Spiriva with HandiHaler] 18 mcg capsule, w/inhalation device 1 cap inhalation DAILY fenofibrate nanocrystallized 145 mg tablet 145 mg PO DAILY budesonide-formoterol [Symbicort] 160-4.5 mcg/actuation HFA aerosol inhaler 2 puff inhalation BID Jardiance 10 mg tablet 10 mg PO DAILY losartan 50 mg tablet 50 mg PO DAILY aspirin 81 mg Tablet,Delayed Release (Dr/Ec) 81 mg PO DAILY doxycycline monohydrate 100 mg tablet 100 mg PO Q12H 5 Days Qty: 10 0RF prednisone 10 mg tablet See Taper PO DIRECTED Qty: 30 0RF Taper: Prednisone 40 mg daily for 3 Days and 0 Hour 30 mg daily for 3 Days and 0 Hour 20 mg daily for 3 Days and 0 Hour 10 mg daily for 3 Days and 0 Hour Rx Instructions: see taper instructions prednisone 10 mg tablet 10 mg PO DAILY Qty: 7 0RF Interventions: ED Discharge Assessment Last Done: 05/01/24 23:57 Discharge Date/Time: 05/01/24 23:57 Print Language: Khmer
--- NOTE | 2024-05-01 16:12 | ECG_ITS ---
Test Reason : SOB Blood Pressure : */* mmHG Vent. Rate : 96 BPM Atrial Rate : 96 BPM P-R Int : 188 ms QRS Dur : 76 ms QT Int : 332 ms P-R-T Axes : 65 42 41 degrees QTcB Int : 419 ms Normal sinus rhythm with sinus arrhythmia Normal ECG When compared with ECG of 05-Feb-2024 17:16, No significant change was found Referred By: Padmini Abad Electronically Signed By: MIKI WAGGONER
--- OUTSIDE RECORDS SUMMARY | 2024-05-01 16:52 | XMS_ITS | Clinical Summary ---
Author Organization [facility], Address [address] [place] [address] [place] [address] Phone Care Team Providers Care Aircraft Worker Name Role Phone Tara Milan Primary Care Provider [phone] Allergies Active Allergy Reactions Criticality Noted Date Comments Codeine 02/16/2023 Other reaction(s): felt like head was going to explode Medications albuterol (2.5 MG/3ML) 0.083% nebulizer solution INHALE 1 AMPULE VIA NEBULIZER EVERY 4 HOURS NEEDED FOR WHEEZING/SHORT NESS OF BREATH 2 Active albuterol HFA (PROVENTIL HFA;VENTOLIN HFA) 108 (90 Base) MCG/ACT inhaler 2 Active amLODIPine (NORVASC) 5 MG tablet 2 Active azithromycin (ZITHROMAX) 250 MG tablet 2 Active Symbicort 160-4.5 MCG/ACT inhaler 2 Active LORazepam (ATIVAN) 0.5 MG tablet 2 Active losartan (COZAAR) 50 MG tablet 2 Active predniSONE (DELTASONE) 20 MG tablet Take 20 mg by mouth in the morning and 20 mg in the evening. 2 Active Paxlovid, 150/100, 10 x 150 MG & 10 x 100MG tablet therapy pack TAKE 2 TABLETS BY MOUTH TWICE A DAY FOR 5 DAYS 2 Active Spiriva HandiHaler 18 MCG per inhalation capsule 2 Active venlafaxine XR (EFFEXOR-XR) 75 MG 24 hr capsule 2 Active losartan (COZAAR) 50 MG tablet Take 50 mg by mouth 1 (one) time each day Active ARIPiprazole (ABILIFY) 10 MG tablet 3 Active Jardiance 10 MG tablet 3 Active fenofibrate (TRICOR) 145 MG tablet 3 Active rosuvastatin (CRESTOR) 20 MG tablet 3 Active clotrimazole (LOTRIMIN) 1 % cream 3 Active Active Problems Problem Noted Date Diagnosed Date Stage 5 chronic kidney disease 04/01/2022 Hypertriglyceridemia 12/20/2013 Gout 03/15/2013 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, type II or unspecified type, not stated as uncontrolled 02/23/2012 Hypertension 04/03/2009 Peripheral vascular disease 04/03/2009 Encounters Date Type Department Care Team Description 03/11/2024 3:00 PM EST Office Visit [facility], [address] [place] [address] Curtis Diallo MD Stage 3b chronic kidney disease (HCC) (Primary Dx); Peripheral vascular disease (HCC); Hypertension; Type 2 diabetes mellitus with diabetic chronic kidney disease (HCC); Persistent proteinuria from Last 3 Months Immunizations Name Administration Dates Next Due Influenza Whole 01/19/2020,02/28/2011,02/19/2010 Jorge SARS-COV-2 03/13/2021,06/30/2020 Pneumococcal Conjugate 13-Valent 03/14/2015 Pneumococcal Polysaccharide 03/15/2013 Td, Unspecified 11/18/2000 Social History Tobacco Use Types Packs/Day Years Used Date Smoking Tobacco: Never Assessed Sex and Gender Information Value Date Recorded Sex Assigned at Not on file Legal Sex Male 5:24 PM EST Gender Identity Not on file Sexual Orientation Not on file Last Filed Vital Signs Vital Sign Reading Time Taken Comments Blood Pressure 124/66 03/11/2024 3:14 PM EST Pulse - - Temperature - - Respiratory Rate - - Oxygen Saturation - - Inhaled Oxygen Concentration - - Weight - - Height - - Body Mass Index - - Plan of Treatment Upcoming Encounters Date Type Department Care Team (Late st Contact Info) Description 09/09/2024 3:30 PM EDT Office Visit [facility], [address] [place] [phone] Curtis Diallo MD [address] [place] [address] Health Maintenance Due Date Last Done Comments Colorectal Cancer Screening: Annual FOBT 2006 Colorectal Cancer Screening: Colonoscopy 2006 Colorectal Cancer Screening: Sigmoidoscopy 2006 Pneumococcal Vaccine: 65+ Years (3 of 3 - PPSV23 or PCV20) 03/15/2018 03/14/2015, 03/15/2013 Diabetes: Hemoglobin A1C 03/05/2022 Diabetes: Ophthalmology Exam 03/05/2022 Diabetes: Pedal Pulse Checked 03/05/2022 Diabetes: Sensory Foot Exam 03/05/2022 Diabetes: Visual Foot Exam 03/05/2022 Influenza Vaccine (#1) 2023 , 01/27/2019, 02/28/2011, Additional history exists Hepatitis B Vaccine Aged Out No longe r eligible based on patient's age to complete this topic Procedures Procedure Name Priority Date/Time Associated Diagnosis Comments RENAL FUNCTION PANEL Routine 03/07/2024 12:34 PM EST Stage 3b chronic kidney disease (HCC) Persistent proteinuria CBC AND DIFFERENTIAL Routine 03/07/2024 12:34 PM EST Stage 3b chronic kidney disease (HCC) Persistent proteinuria PROTEIN / CREATININE RATIO, URINE Routine 03/07/2024 12:34 PM EST Stage 3b chronic kidney disease (HCC) Persistent proteinuria from Last 3 Months Results * (ABNORMAL) Protein, Total, Random Urine w/Creatinine (Protein/Creat Ratio) (03/07/2024 12:34 PM EST) Creatinine, Ur 50.6 Not Estab. mg/dL [facility] Protein, Ur 46.0 Not Estab. mg/dL [facility] Urine Protein/Creati nine Ratio 909(H) 0 - 200 mg/g creat [facility] Urine (Urine, Clean Catch) 03/07/2024 12:34 PM EST 03/07/2024 us Curtis Diallo MD LAB URINE ORDERABLES Final Result [facility] [address] [place] [address] * CBC and Differential (03/07/2024 12:34 PM EST) WBC 6.0 3.4 - 10.8 x10E3/uL [facility] RBC 4.54 4.14 - 5.80 x10E6/uL [facility] Hemoglobin 13.2 13.0 - 17.7 g/dL [facility] Hematocrit 40.5 37.5 - 51.0 % [facility] MCV 89 79 - 97 fL [facility] MCH 29.1 26.6 - 33.0 pg [facility] MCHC 32.6 31.5 - 35.7 g/dL [facility] RDW 15.3 11.6 - 15.4 % [facility] Platelets 255 150 - 450 x10E3/uL [facility] Neutrophils Relative 74 Not Estab. % [facility] Lymphocytes Relative 12 Not Estab. % [facility] Monocytes 10 Not Estab. % [facility] Eosinophils Relative 2 Not Estab. % [facility] Basophils Relative 1 Not Estab. % [facility] Neutrophils Absolute 4.5 1.4 - 7.0 x10E3/uL [facility] Lymphocytes Absolute 0.7 0.7 - 3.1 x10E3/uL [facility] Monocytes Absolute 0.6 0.1 - 0.9 x10E3/uL [facility] Eosinophils Absolute 0.1 0.0 - 0.4 x10E3/uL [facility] Basophils Absolute 0.1 0.0 - 0.2 x10E3/uL [facility] Immature Granulocytes 1 Not Estab. % [facility] Immature Grans (Absolute) 0.1 0.0 - 0.1 x10E3/uL [facility] Blood (Blood, Venous) 03/07/2024 12:34 PM EST 03/07/2024 us Curtis Diallo MD LAB BLOOD ORDERABLES Final Result [facility] [address] [place] [address] * (ABNORMAL) Renal Function Panel (03/07/2024 12:34 PM EST) Glucose 113(H) 70 - 99 mg/dL [facility] BUN 41(H) 8 - 27 mg/dL [facility] Creatinine 2.36(H) 0.76 - 1.27 mg/dL [facility] eGFR CKD-EPI CR 2020 30(L) >59 mL/min/1.7 3 [facility] BUN/Creatinine Ratio 17 10 - 24 [facility] Sodium 139 134 - 144 mmol/L [facility] Potassium 5.1 3.5 - 5.2 mmol/L [facility] Chloride 102 96 - 106 mmol/L [facility] Bicarbonate (CO2) 24 20 - 29 mmol/L [facility] Calcium 9.5 8.6 - 10.2 mg/dL [facility] Albumin 4.0 3.9 - 4.9 g/dL [facility] Phosphorus 2.8 2.8 - 4.1 mg/dL [facility] Blood (Blood, Venous) 03/07/2024 12:34 PM EST 03/07/2024 Curtis Diallo MD LAB BLOOD ORDERABLES Final Result [facility] [address] [place] [address] from Last 3 Months Insurance MEDICARE MEDICAID [place] Care Teams Aircraft Worker Relationship Specialty Start Date End Date Tara Milan [address] [place] [address] PCP - General 11/12/21
--- OUTSIDE RECORDS SUMMARY | 2024-05-01 16:52 | XMS_ITS | Encounter Summary ---
Author Organization [facility], Address [address] [place] [address] Phone Care Team Providers Care Grinding Machine Tender Name Role Phone Tara Milan Primary Care Provider [phone] Encounter Details Date Type Department Care Team (Late st Contact Info) Description 03/03/2022 Documentation Only [facility] [address] [place] [phone] Curtis Diallo MD [address] [place] [address] [place] [phone] Social History Tobacco Use Types Packs/Day Years Used Date Smoking Tobacco: Never Assessed Sex and Gender Information Value Date Recorded Sex Assigned at Not on file Legal Sex Male 5:24 PM EST Gender Identity Not on file Sexual Orientation Not on file documented as of this encounter Plan of Treatment Upcoming Encounters Date Type Department Care Team (Late st Contact Info) Description 09/09/2024 3:30 PM EDT Office Visit [facility] [address] [place] [phone] Curtis Diallo MD [address] [place] [address] [place] [address] documented as of this encounter Visit Diagnoses Not on filedocumented in this encounter Care Teams Grinding Machine Tender Relationship Specialty Start Date End Date Tara Milan [facility] [place] [address] PCP - General 11/12/21 documented as of this encounter
[2024-05-01 16:55] LABS: MANUAL DIFF FLAG NO
[2024-05-01 16:56] LABS: Basophils Absolute Auto 0.1 X10*3/uL (0.0-0.2); Basophils Percent Auto 1.1 % (0-2); Eosinophils Absolute Auto 0.3 X10*3/uL (0.0-0.4); Eosinophils Percent Auto 3.3 % (0-4); Hematocrit 39.4 % (42.0-52.0); Imm Gran Abs Auto 0.05 X10*3/uL (0.00-0.03); Imm Gran Pct Auto 0.6 % (0.0-0.4); Lymphocytes Absolute Auto 0.9 X10*3/uL (1.2-4.9); Lymphocytes Percent Auto 10.7 % (20-40); Mean Corpuscular Hemoglobin 30.2 pg (27.0-33.0); Mean Corpuscular Volume 91.6 fL (80.0-98.0); Mean Platelet Volume 9.8 fL (9.4-12.4); Monocytes Absolute Auto 0.8 X10*3/uL (0.1-1.2); Monocytes Percent Auto 10.1 % (2-11); Neutrophils Percent Auto 74.2 % (45-73); Platelet Count 209 X10*3/uL (160-400); Red Cell Distribution Width 14.9 % (11.0-16.0); White Blood Count 8.1 X10*3/uL (4.8-10.8)
[2024-05-01 17:09] LABS: Alanine Aminotransferase 12 U/L (0-40); Albumin Level 4.1 g/dL (3.5-5.0); Alkaline Phosphatase 85 U/L (39-117); Anion Gap 12 (12-20); Aspartate Amino Transferase 17 U/L (5-37); Bilirubin Total 0.1 mg/dL (0.0-1.0); Blood Urea Nitrogen 49 mg/dL (9-16); Calcium 9.7 mg/dL (8.4-10.2); Carbon Dioxide 25 mmol/L (22-29); Chloride 109 mmol/L (96-108); Creatinine Clr Calc Pharmacy 38.1; Estimated Glomerular Filt Rate 28; Glucose Random 79 mg/dL (60-115); Magnesium 2.1 mg/dL (1.6-2.6); Potassium 5.3 mmol/L (3.3-5.1); Sodium 141 mmol/L (135-145); Total Protein 7.6 g/dL (6.5-8.0)
[2024-05-01 17:16] LABS: Troponin-I High Sensitivity 3.6 ng/L (<3.5-35.0)
[2024-05-01 17:31] LABS: Influenza A PCR NEGATIVE (Negative); Influenza B PCR NEGATIVE (Negative); Resp Syncy Virus RNA Qual PCR NEGATIVE (Negative); SARS COV2 PCR INHOUSE NEGATIVE (Negative)
[2024-05-01 19:26] VITALS: BP 150/79; PULSE 81; RESP 18; TEMP 36.2; O2SAT 96
[2024-05-01 23:26] VITALS: BP 150/78; PULSE 83; RESP 18; TEMP 36.5; O2SAT 98
[2024-05-01 23:27] VITALS: O2SAT 98
[2024-05-01] MEDS: Doxycycline Monohydrate 100 MG CAPSULE PO (23:49)
[2024-05-01] MEDS: predniSONE 20 MG TABLET 60 MG PO (23:49)
[2024-05-01 23:57] VITALS: BP 150/78; PULSE 83; RESP 18; TEMP 36.5; O2SAT 98
== END 2024-05-01 23:57 | disposition home or self-care (01) ==
PROVIDERS: Physician Assistant Medical; Emergency Provider Emergency Medicine Emergency Medical Services; PCP Family Medicine
DX: J44.1 Chronic obstructive pulmonary disease with (acute) exacerbation (principal); J40 Bronchitis, not specified as acute or chronic; R06.02 Shortness of breath; R05.9 Cough, unspecified; I49.8 Other specified cardiac arrhythmias; R11.2 Nausea with vomiting, unspecified; Z99.81 Dependence on supplemental oxygen; Z79.899 Other long term (current) drug therapy; Z03.818 Encounter for observation for suspected exposure to other biological agents ruled out
CPT/HCPCS: 0241U; 71046; 80053; 83735; 84484; 85025; 93005; 99284; 99285

== ENCOUNTER → 2024-05-01 16:12 | Outpatient (BNV) | payer MEDICARE, MEDICAID, SELFPAY | PROVIDERS: Emergency Provider Emergency Medicine Emergency Medical Services; PCP Family Medicine; Visit Provider Internal Medicine | DX: R06.02 Shortness of breath (principal) | CPT/HCPCS: 93010 ==

== ENCOUNTER → 2024-05-01 16:12 | Outpatient (BNV) | payer MEDICARE, MEDICAID, SELFPAY | PROVIDERS: PCP Family Medicine; Visit Provider Radiology Diagnostic Radiology | DX: J98.11 Atelectasis (principal) | CPT/HCPCS: 71046 ==

== ENCOUNTER 2025-01-25 10:22 | Emergency (ER) | payer MEDICARE, MEDICAID, SELFPAY ==
--- NOTE | ~2025-01-25 | XR_ITS ---
EXAMINATION: XR CHEST 2 VIEWS HISTORY: short of breath COMPARISON: Comparison is made with the prior examination dated 05/01/2024. FINDINGS: PA and lateral views of the chest are submitted. The lungs remain hyperinflated, consistent with COPD. There is scarring at the right lung base. No new focal airspace opacity is seen. There is no pleural effusion, pneumothorax, or pulmonary vascular congestion. The heart is normal in size. There is mild degenerative disc disease of the spine. XR/XR chest 2V IMPRESSION: COPD. No acute cardiopulmonary abnormality. Electronically signed by: Grayson Willett MD 01/25/2025 11:38 AM EDT
[2025-01-25 10:48] VITALS: BP 134/65; PULSE 90; RESP 22; TEMP 36.8; O2SAT 97; BMI 37.8
--- NOTE | 2025-01-25 10:52 | ED.GENADULT ---
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 No lower extremity edema no weight gain reported. Related Data Home Medications ?Medication ?Instructions ?Recorded ?Confirmed albuterol sulfate 90 mcg/actuation 2 puff inhalation Q6H PRN 01/23/24 01/23/24 aerosol inhaler (Ventolin HFA) Shortness Of Breath Or Wheezing amlodipine 5 mg tablet 5 mg PO DAILY 01/23/24 01/23/24 aripiprazole 5 mg tablet 5 mg PO DAILY 01/23/24 01/23/24 aspirin 81 mg tablet,delayed 81 mg PO DAILY 01/23/24 01/23/24 release budesonide-formoterol HFA 160 2 puff inhalation BID 01/23/24 01/23/24 mcg-4.5 mcg/actuation aerosol inhaler (Symbicort) empagliflozin 10 mg tablet 10 mg PO DAILY 01/23/24 01/23/24 (Jardiance) fenofibrate nanocrystallized 145 145 mg PO DAILY 01/23/24 01/23/24 mg tablet lorazepam 0.5 mg tablet 0.5 mg PO Q8H PRN Anxiety 01/23/24 01/23/24 losartan 50 mg tablet 50 mg PO DAILY 01/23/24 01/23/24 omeprazole 20 mg capsule,delayed 20 mg PO DAILY@0630 01/23/24 01/23/24 release polyethylene glycol 3350 17 17 g PO DAILY 01/23/24 01/23/24 gram/dose oral powder rosuvastatin 40 mg tablet 40 mg PO DAILY 01/23/24 01/23/24 tiotropium bromide 18 mcg capsule 1 cap inhalation DAILY 01/23/24 01/23/24 with inhalation device (Spiriva with HandiHaler) venlafaxine 75 mg capsule,extended 225 mg PO DAILY 01/23/24 01/23/24 release 24 hr Previous Rx's ?Medication ?Instructions ?Recorded doxycycline monohydrate 100 mg 100 mg PO Q12H 5 days #10 tabs 01/24/24 tablet prednisone 10 mg tablet See Taper PO DIRECTED #30 tabs 01/24/24 prednisone 10 mg tablet 10 mg PO DAILY #7 tabs 02/05/24 doxycycline hyclate 100 mg tablet 100 mg PO Q12H 7 days #14 tabs 05/01/24 prednisone 20 mg tablet 60 mg (3 x 20 mg) PO DAILY 5 days 05/01/24 #15 tabs doxycycline hyclate 100 mg capsule 100 mg PO BID 7 days #14 caps 01/25/25 prednisone 20 mg tablet 40 mg (2 x 20 mg) PO DAILY 10 days 01/25/25 #20 tabs Allergies Allergy/AdvReac Type Severity Reaction Status Date / Time codeine Allergy Headache Verified 01/25/25 10:57 Review of Systems Constitutional: Constitutional: Reports as per [facility] Past Medical History Medical History Hypertension Peripheral vascular disease Diabetes Common variable immunodeficiency COPD (chronic obstructive pulmonary disease) Social History Social History Household Members: Spouse Housing: Apartment Do you presently have visiting nurse or other home services: No Alcohol intake: never Patient Tobacco Use Status: Former Tobacco user Smoked in Last 30 Days: No Use of substances other than those prescribed or required for medical reasons: No service: No Physical Exam ED Exam Exam: General: ?Appears of stated age, oxygen dependent ? ?PERRLA, EOMI, MMM, ? Neck: Supple, no LAD, no JVD ? ?CV: RRR, no obvious murmurs appreciated ? ?Resp: Moving air, slight dyspnea noted but no stridor no wheezing, no rhonchi ? Abd: ?Bowel sounds are present, no tenderness no rebound no rigidity ? ?MSK: FROM, strength 5/5 all extremities, no lower extremity edema ? Skin: Warm, dry, intact, ? ?Neuro: ?Alert and oriented x3, moving upper and lower extremities symmetrically, no obvious facial asymmetry noted, cranial nerves 2-12 intact Vital Signs: Vital Signs - 24 hr 01/25/25 10:48 01/25/25 13:11 Temperature 98.3 F Pulse Rate 90 78 Respiratory Rate 22 H 18 Blood Pressure 134/65 113/52 L Pulse Oximetry 97 94 Oxygen Delivery Method Nasal Cannula Room Air BMI result Body Mass Index 37.8 Course Course Course Narrative: This is a Rapid Medical Examination (RME) performed by Tommy Hernadez PA-C in triage. Full HPI, ROS, assessment and treatment plan per primary provider in the Main ED. Hx: 69 yo M hx CKD, COPD on 2L NC at baseline, pneumonia, bronchitis here w/ chest congestion, sinus headache, shortness of breath, and cough productive of thick heavy yellow sputum x2 weeks. seen by PCP on 01/13/25, prescribed abx pred with improvement. now feels worse. he has not had to increased his O2 supplementation. recent dx of brain aneurysm, has surgical clipping scheduled. Plan: labs, ekg, cxr, viral swabs Medications Administered Discontinued Medications Generic Name Dose Route Start Last Admin Trade Name Freq PRN Reason Stop Dose Admin Doxycycline Monohydrate 100 mg 01/25/25 13:18 01/25/25 13:29 Doxycycline Monohydrate 100 Mg Capsule PO 01/25/25 13:19 100 mg ONCE ONE Administration Prednisone 60 mg 01/25/25 13:18 01/25/25 13:29 Prednisone 20 Mg Tablet PO 01/25/25 13:19 60 mg ONCE ONE Administration Medical Decision Making Medical Decision Making [facility] Narrative: 1:36 PM 01/25/2025 (Dr. Corky Pham): Blood work is fairly reassuring, has a history of CKD, chest x-ray without new findings, he is oxygen dependent, reports to be dyspneic but clinically there is no rales or wheezing, there was no evidence for fluid retention such as lower extremity edema or JVD, BNP is not elevated, cardiac enzymes unremarkable, no ECG changes to suspect underlying ACS, COPD exacerbation is most likely diagnosis, I discussed with the patient and I do feel that likely what we are going to do his prescribed longer course of steroids and continue doxycycline have him follow up with his enthone solder stripper. He does take Symbicort and has rescue inhalers that he is able to use as well. Differential Diagnosis Differential Diagnoses: The differential diagnosis associated with the presentation includes (CHF, COPD exacerbation, pneumonia, pneumothorax, ACS, PE,) Admission/Observation Consideration of admission/observation: Escalation of care including admission/observation considered Lab Data MDM Lab Attestation statement: I reviewed the patient's lab results. 01/25/25 11:14 01/25/25 11:14 Labs: Lab Results 01/25/25 Range/Units 11:14 WBC 11.1 H (4.8-10.8) X10*3/uL RBC 4.33 L (4.60-5.80) X10*6/uL Hgb 12.7 L (14.0-18.0) g/dl Hct 40.5 L (42.0-52.0) % MCV 93.5 (80.0-98.0) fL MCH 29.3 (27.0-33.0) pg MCHC 31.4 (31.0-36.0) g/dl RDW 14.1 (11.0-16.0) % Plt Count 214 (160-400) X10*3/uL MPV 10.0 (9.4-12.4) fL Immature Gran % (Auto) 0.5 H (0.0-0.4) % Neut % (Auto) 82.4 H (45-73) % Lymph % (Auto) 5.9 L (20-40) % Swisher % (Auto) 8.0 (2-11) % Eos % (Auto) 2.5 (0-4) % Baso % (Auto) 0.7 (0-2) % Lymph # (Auto) 0.7 L (1.2-4.9) X10*3/uL Swisher # (Auto) 0.9 (0.1-1.2) X10*3/uL Eos # (Auto) 0.3 (0.0-0.4) X10*3/uL Baso # (Auto) 0.1 (0.0-0.2) X10*3/uL Abs Immat Gran (auto) 0.06 H (0.00-0.03) X10*3/uL Absolute Neuts (auto) 9.2 H (2.0-8.3) x10*3/uL Absolute Nucleated RBC 0.000 (0.0-0.012) X10*3/uL Nucleated RBC % (auto) 0.0 (0.0-0.2) /100WBC Sodium 141 (135-145) mmol/L Potassium 4.9 (3.3-5.1) mmol/L Chloride 109 H (96-108) mmol/L Carbon Dioxide 25 (22-29) mmol/L Anion Gap 12 (12-20) BUN 43 H (9-16) mg/dL Creatinine 2.80 H (0.5-1.4) mg/dL Estim Creat Clear Calc 29.2 Estimated GFR 23 Random Glucose 113 (60-115) mg/dL Calcium 9.7 (8.4-10.2) mg/dL Magnesium 2.3 (1.6-2.6) mg/dL Total Bilirubin 0.2 (0.0-1.0) mg/dL AST 22 (5-37) U/L ALT 18 (0-40) U/L Alkaline Phosphatase 85 (39-117) U/L Troponin I High Sens 5.7 D (<3.5-35.0) ng/L NT-Pro-B Natriuret Pep 119.0 (<300) pg/mL Total Protein 6.7 (6.5-8.0) g/dL Albumin 4.0 (3.5-5.0) g/dL COVID-19 (MAURY) Negative (Negative) COVID-19 Clin Com See Note Influenza Type A (LIZ) Negative (Negative) Influenza Type B (LIZ) Negative (Negative) Influenza A & B Note See Note Independent Interpretation I performed an independent interpretation of an: Plain X-Ray (Atelectasis right mid lobe, similar to prior no pneumothorax, no blebs, no pulmonary edema) Radiology Impression Discussion of test interpretation with radiology: I have reviewed the radiologist's reading. ( XR/XR chest 2V IMPRESSION: COPD. No acute cardiopulmonary abnormality.) Independent Historian Clinical information obtained from an independent historian. History obtained from or confirmed by: Spouse Tests considered The following testing was considered but not selected: CT angio chest Chronic Conditions Patient?s care impacted by: Other (COPD, oxygen dependent) Discharge Plan Discharge Clinical Impression: COPD exacerbation, CKD (chronic kidney disease) stage 3, GFR 30-59 ml/min Additional Instructions: Your workup has been fairly reassuring, there was no evidence for significant dehydration, heart failure or anything else to suspect underlying heart issue, chest x-ray without much change from prior x-rays there were no evidence of pneumonia, as discussed I think restarting on doxycycline and longer course of steroids is what I would do at this time, but I do recommend you get in touch with the enthone solder stripper, any other issues or concerns come back to the ER Take steroids for 5 days and if you need to you, but I am providing you for the another 5 days of worth of steroids so you do not have to come back to the ER, but obviously you can always come back for worsening issues or concerns Prescriptions: New doxycycline hyclate 100 mg capsule 100 mg PO BID 7 Days Qty: 14 0RF prednisone 20 mg tablet 40 mg PO DAILY 10 Days Qty: 20 0RF No Action venlafaxine 75 mg capsule,extended release 24hr 225 mg PO DAILY amlodipine 5 mg tablet 5 mg PO DAILY lorazepam 0.5 mg tablet 0.5 mg PO Q8H PRN (Reason: Anxiety) omeprazole 20 mg capsule,delayed release(DR/EC) 20 mg PO DAILY@0630 polyethylene glycol 3350 17 gram/dose powder 17 g PO DAILY albuterol sulfate [Ventolin HFA] 90 mcg/actuation HFA aerosol inhaler 2 puff inhalation Q6H PRN (Reason: Shortness Of Breath Or Wheezing) aripiprazole 5 mg tablet 5 mg PO DAILY rosuvastatin 40 mg tablet 40 mg PO DAILY tiotropium bromide [Spiriva with HandiHaler] 18 mcg capsule, w/inhalation device 1 cap inhalation DAILY fenofibrate nanocrystallized 145 mg tablet 145 mg PO DAILY budesonide-formoterol [Symbicort] 160-4.5 mcg/actuation HFA aerosol inhaler 2 puff inhalation BID Jardiance 10 mg tablet 10 mg PO DAILY losartan 50 mg tablet 50 mg PO DAILY aspirin 81 mg Tablet,Delayed Release (Dr/Ec) 81 mg PO DAILY doxycycline monohydrate 100 mg tablet 100 mg PO Q12H 5 Days Qty: 10 0RF prednisone 10 mg tablet See Taper PO DIRECTED Qty: 30 0RF Taper: Prednisone 40 mg daily for 3 Days and 0 Hour 30 mg daily for 3 Days and 0 Hour 20 mg daily for 3 Days and 0 Hour 10 mg daily for 3 Days and 0 Hour Rx Instructions: see taper instructions prednisone 10 mg tablet 10 mg PO DAILY Qty: 7 0RF prednisone 20 mg tablet 60 mg PO DAILY 5 Days Qty: 15 0RF doxycycline hyclate 100 mg tablet 100 mg PO Q12H 7 Days Qty: 14 0RF Print Language: Yakut
--- NOTE | 2025-01-25 10:55 | ECG_ITS ---
Test Reason : sob Blood Pressure : */* mmHG Vent. Rate : 89 BPM Atrial Rate : 89 BPM P-R Int : 194 ms QRS Dur : 80 ms QT Int : 328 ms P-R-T Axes : 70 43 34 degrees QTcB Int : 399 ms Sinus rhythm with Premature supraventricular complexes Otherwise normal ECG When compared with ECG of 01-May-2024 16:44, Premature supraventricular complexes are now Present Referred By: Monet Hernadez Electronically Signed By: TERESA PARIS MD
[2025-01-25 11:26] LABS: MANUAL DIFF FLAG NO
[2025-01-25 11:28] LABS: Hematocrit 40.5 % (42.0-52.0); Hemoglobin 12.7 g/dl (14.0-18.0); Imm Gran Abs Auto 0.06 X10*3/uL (0.00-0.03); Imm Gran Pct Auto 0.5 % (0.0-0.4); Lymphocytes Absolute Auto 0.7 X10*3/uL (1.2-4.9); Mean Corpuscular HGB Conc 31.4 g/dl (31.0-36.0); Mean Corpuscular Hemoglobin 29.3 pg (27.0-33.0); Mean Corpuscular Volume 93.5 fL (80.0-98.0); NRBC Abs Auto 0.000 X10*3/uL (0.0-0.012); NRBC Pct Auto 0.0 /100WBC (0.0-0.2); Platelet Count 214 X10*3/uL (160-400); Red Blood Count 4.33 X10*6/uL (4.60-5.80); White Blood Count 11.1 X10*3/uL (4.8-10.8)
[2025-01-25 11:36] LABS: COVID-19 Test Negative (Negative); IDNOW Serial# 152EDE1D; IDNOW Serial# 16C4AD1C; Influenza B2 Negative (Negative)
[2025-01-25 11:42] LABS: Alanine Aminotransferase 18 U/L (0-40); Albumin Level 4.0 g/dL (3.5-5.0); Alkaline Phosphatase 85 U/L (39-117); Anion Gap 12 (12-20); Aspartate Amino Transferase 22 U/L (5-37); Blood Urea Nitrogen 43 mg/dL (9-16); Calcium 9.7 mg/dL (8.4-10.2); Carbon Dioxide 25 mmol/L (22-29); Chloride 109 mmol/L (96-108); Creatinine Clr Calc Pharmacy 29.2; Estimated Glomerular Filt Rate 23; Magnesium 2.3 mg/dL (1.6-2.6); Potassium 4.9 mmol/L (3.3-5.1); Sodium 141 mmol/L (135-145); Total Protein 6.7 g/dL (6.5-8.0)
[2025-01-25 11:50] LABS: NT Pro B Type Natriuretic Pept 119.0 pg/mL (<300); Troponin-I High Sensitivity 5.7 ng/L (<3.5-35.0)
--- NOTE | 2025-01-25 13:09 | PC.NURSE ---
Pt A&O X4 VSS NAD at this time. states SOB more than normal. Pt not on O2 at this time and sats 93-94%. Denies other complaints
[2025-01-25 13:11] VITALS: BP 113/52; PULSE 78; RESP 18; O2SAT 94
[2025-01-25] MEDS: Albuterol Sulfate 5 MG, Albuterol Sulfate (0.083%) 2.5 MG 7.5 MG INHALE (13:44)
[2025-01-25 13:45] VITALS: PULSE 78; RESP 21; O2SAT 95
[2025-01-25 14:48] VITALS: BP 114/53; PULSE 92; RESP 18; TEMP 36.2; O2SAT 96
[2025-01-25 14:49] VITALS: BP 114/53; PULSE 92; RESP 18; TEMP 36.2; O2SAT 96
== END 2025-01-25 15:06 | disposition home or self-care (01) ==
PROVIDERS: Physician Assistant Medical; Emergency Provider Emergency Medicine; PCP Student in an Organized Health Care Education/Training Program
DX: J44.1 Chronic obstructive pulmonary disease with (acute) exacerbation (principal); R07.89 Other chest pain; R06.02 Shortness of breath; Z99.81 Dependence on supplemental oxygen; Z79.899 Other long term (current) drug therapy; Z87.891 Personal history of nicotine dependence; Z11.52 Encounter for screening for COVID-19
CPT/HCPCS: 36415; 71046; 80053; 83735; 83880; 84484; 85025; 87502; 87635; 93005; 94640; 99284; 99285

== ENCOUNTER → 2025-01-25 10:55 | Outpatient (BNV) | payer MEDICARE, MEDICAID, SELFPAY | PROVIDERS: Emergency Provider Emergency Medicine; PCP Student in an Organized Health Care Education/Training Program; Visit Provider Internal Medicine Cardiovascular Disease | DX: I49.3 Ventricular premature depolarization (principal) | CPT/HCPCS: 93010 ==

== ENCOUNTER → 2025-01-25 10:55 | Outpatient (BNV) | payer MEDICARE, MEDICAID, SELFPAY | PROVIDERS: PCP Student in an Organized Health Care Education/Training Program; Visit Provider Radiology Diagnostic Radiology | DX: J44.9 Chronic obstructive pulmonary disease, unspecified (principal) | CPT/HCPCS: 71046 ==